=== PATIENT | female | born 1930 | race Caucasian/White ===

== ENCOUNTER 2017-05-12 10:41 | Outpatient (CLI) | payer MEDICARE, OTHER | END 2017-05-12 10:42 | disposition home or self-care (01) | LOC: BICMAMMO 10:41 | PROVIDERS: ATTEND Internal Medicine | DX: R92.8 Other abnormal and inconclusive findings on diagnostic imaging of breast (principal) | CPT/HCPCS: G0204; G0279; 77066 ==

== ENCOUNTER 2019-03-15 12:40 | Inpatient (IN) | payer MEDICARE, OTHER ==
[~2019-03-15 12:40] MED LIST: Iopamidol-370 76% 500 ML 1 ML ONE
[2019-03-15 13:15] LABS: #Neutrophils 6.4 thou/uL (1.40-6.50); %Basophils 0.5 % (0.0-1.0); %Eosinophils 0.4 % (0.0-10.0); %Lymphocytes 11.8 % (21.0-51.0); %Monocytes 11.6 % (0.0-10.0); %Neutrophils 75.7 % (42.0-75.0); Hemoglobin 7.3 g/dL (12.0-16.0); Mean Corpuscular HGB CONC 28.5 g/dL (32.0-36.0); Mean Corpuscular Hemoglobin 20.4 pg (27.0-31.0); Mean Corpuscular Volume 71.6 fL (78.0-98.0); Mean Platelet Volume 7.1 fL (7.4-10.4); Platelet Count 468 thou/uL (130-400); RBC Distribution Width 17.6 % (11.5-14.5); White Blood Cell (WBC) Count 8.4 thou/uL (4.8-10.8)
--- NOTE | 2019-03-15 13:18 | RAD ---
Exam: Chest one view HISTORY:Chest Comparison: None FINDINGS: Cardiac silhouette:Upper normal cardiac silhouette Aorta: Atherosclerosis of the aorta Pulmonary vessels: Normal Costophrenic angles: All bilateral effusions. LUNGS: Patchy interstitial and alveolar opacities. Pneumothorax: None Osseous abnormalities: Chronic changes in the left and right shoulder. IMPRESSION: 1. Possible congestive heart failure. 2. Atherosclerosis. 3. Continued surveillance.
[2019-03-15 13:20] LABS: PTT 29.9 SEC (22.9-36.1); Prothrombin Time 12.8 SEC (12.0-14.7)
[2019-03-15 13:22] LABS: D-Dimer Test 0.68 *mcg/mL (0.27-0.43); MDiff Complete? YES; Microcytosis SLIGHT = 6-15 cells (100X) (0-5/hpf); Platelet Morphology Comment Appears Increased; Polychromasia MODERATE = 3-4 cells (100X) (0-2/hpf)
[2019-03-15 13:27] LABS: Hypochromia MODERATE=16-30 cells (100X) (0-5/hpf); Target Cells SLIGHT = 2-5 cells (100X) (0-1/hpf)
[2019-03-15 13:35] LABS: ALT (SGPT) 19 U/L (8-55); AST (SGOT) 19 U/L (5-34); Albumin 3.8 g/dL (3.4-4.8); Alkaline Phosphatase 88 U/L (40-110); Anion Gap 11 mmol/L (10-20); BUN (Urea Nitrogen) 28 mg/dL (9.8-20.1); Bilirubin, Total 0.3 mg/dL (0.2-1.2); Calc. Creatinine Clearance 0 mL/min (70-130); Carbon Dioxide 25 mmol/L (23-31); Chloride 102 mmol/L (98-107); Estimated GFR-MDRD 64; Globulin 2.4 g/dL (2.4-3.5); Glucose 130 mg/dL (83-110); Potassium 4.8 mmol/L (3.5-5.1); Protein, Total 6.2 g/dL (6.0-8.3); Sodium 133 mmol/L (136-145)
[2019-03-15] MEDS ORDERED: traMADol HCl 50 MG TAB ONE (14:24)
[2019-03-15] MEDS ORDERED: Furosemide 40 MG/4 ML VIAL ONE (14:58)
[2019-03-15] MEDS ORDERED: Aspirin Chewable 81 MG TAB ONE (14:58)
[2019-03-15] MEDS ORDERED: Nitroglycerin 2% Ointment 1 INCH/1 GM Packet ONE (14:58)
[2019-03-15] MEDS ORDERED: Senokot S 8.6-50 MG TAB PO PRN (15:22)
[2019-03-15] MEDS ORDERED: Acetaminophen 325 MG TAB PO PRN (15:22)
[2019-03-15] MEDS ORDERED: Bisacodyl 10 MG SUPP PR PRN (15:22)
[2019-03-15] MEDS ORDERED: Ondansetron PF 4 MG/2 ML Vial IVP PRN (15:22)
[2019-03-15] MEDS ORDERED: Guaifenesin DM 100-10/5 ML UDCUP PO PRN (15:22)
--- NOTE | 2019-03-15 16:18 | HP ---
REASON FOR ADMISSION: CHF exacerbation. HISTORY OF PRESENTING ILLNESS: The patient gives history of being short of breath for the last 1 week. This was progressively getting worse. She has had dry coughing spells. No fever. The patient states she has known history of CHF. She also smokes 7 to 8 cigarettes a day now. No complaints of chest pain or palpitations at present. No PND or orthopnea. She normally ambulates by herself, but from last 1 week she has been using a walker now due to shortness of breath and is holding onto kramer due to severe shortness of breath. PAST MEDICAL AND SURGICAL HISTORY: History of coronary artery disease with prior stents. She has had stents in her iliac artery. Balloon angioplasty done for the legs by Dr. Anne in [place]. She has also seen Dr. Oliva in [place], both are cardiologists. She was suggested CABG, but will be a complicated procedure and the patient has refused the same for now. Osteoarthritis, she received steroid shots for shoulders and knees. Has labile hypertension, sensorineural deafness with hearing aid, tonsillectomy in high school, left breast cancer and lumpectomy in 1991, right breast cancer and lumpectomy done in 1993. She has finished chemo and radiation therapy in 1993. She has had a spot in her lungs and has had excision biopsy done by Dr. Curry, which was negative for cancer. Hysterectomy, dyslipidemia, hypothyroidism. CURRENT MEDICATIONS: The patient is on; 1. Synthroid 125 mcg p.o. daily. 2. Aspirin 81 mg p.o. daily. 3. Ultram twice daily p.r.n. 4. Crestor 10 mg p.o. daily. 5. Isosorbide dinitrate 10 mg twice daily. 6. Carvedilol 3.125 mg twice daily. 7. Plavix 75 mg p.o. daily. 8. Vitamin B12 with folic acid one tablet daily. ALLERGIES: ERYTHROMYCIN, HALCION, KEFLEX, LISINOPRIL, PENICILLIN, AND TETRACYCLINE. SHE IS ALSO ALLERGIC TO CLEOCIN. PERSONAL HISTORY: Smokes 7 to 8 cigarettes a day. Does not abuse alcohol or drugs. She usually ambulates by herself, but from last 1 week, she is using a walker. FAMILY HISTORY: Both parents at the age of 89. Mother has had history of carotid stenosis. Father has had history of laryngeal cancer. CODE STATUS: Do not attempt to resuscitate. Power of workers compensation defense attorney is her [id number], Ms. Maria Victoria Paula. REVIEW OF SYSTEMS: CONSTITUTIONAL: Negative for weight loss or gain, ability to conduct usual activities. SKIN: Negative for rash, itching. EYES: Negative for double vision, pain. ENT/MOUTH: Negative for nose bleeding, neck stiffness, pain, tenderness. CARDIOVASCULAR: Negative for palpitations, dyspnea on exertion, orthopnea. RESPIRATORY: Negative for shortness of breath, wheezing, cough, hemoptysis, fever or night sweats. GASTROINTESTINAL: Negative for poor appetite, abdominal pain, heartburn, nausea , vomiting, constipation, or diarrhea. GENITOURINARY: Negative for urgency, frequency, dysuria, nocturia. MUSCULOSKELETAL: Negative for pain, swelling. NEUROLOGIC/PSYCHIATRIC: Negative for anxiety, depression. ALLERGY/IMMUNOLOGIC: Negative for skin rash, bleeding tendency. PHYSICAL EXAMINATION: GENERAL: The patient is an 88-year-old female who is currently in mild to moderate respiratory distress. VITAL SIGNS: Blood pressure 164/74, pulse 86 per minute, respiratory rate 22 per minute, temperature 98 degrees Fahrenheit, saturating 98% on room air. NECK: Supple. No elevated JVD. HEENT: Eyes; extraocular muscles intact. Pupils are reacting to light. Oral cavity, mucous membranes are dry. No exudates or congestion. CARDIOVASCULAR SYSTEM: S1 and S2 heard. Regular rhythm. RESPIRATORY SYSTEM: Air entry 1+ bilateral. Scattered wheezes plus bilateral. Scattered rales plus in the infrascapular and infra-axillary area. ABDOMEN: Soft. Bowel sounds heard. No tenderness, rigidity, or guarding. EXTREMITIES: There is mild peripheral edema. There is ecchymosis in both lower extremities. No calf tenderness. VASCULAR SYSTEM: Peripheral pulses 1+ bilateral. No ischemic ulcerations or gangrene. CENTRAL NERVOUS SYSTEM: No gross focal deficits noted. The patient is alert, awake, and oriented well. PSYCHIATRIC SYSTEM: The patient's mood is euthymic. No hallucinations or delusions. LABORATORY DATA: Chest x-ray done shows pulmonary vascular congestion. EKG done shows normal sinus rhythm at 85 beats per minute. There is Q-wave seen in V1 and V2. White count of 8, H and H of 7 and 25, platelet count is 468 with 75% neutrophils, MCV 71. PT, INR, PTT within normal limits. D-dimer 0.68. Sodium 133, bicarb 25, BUN 28, creatinine 0.8, glucose 130. BNP 1067. Troponin I less than 0.01. Liver enzymes are within normal limits. Albumin is 3.8. CLINICAL IMPRESSION AND PLAN: The patient will be admitted to telemetry for acute congestive heart failure exacerbation. She will be on Lasix 40 mg IV at 6 a.m. and 2 p.m. She has received a dose of Lasix 40 mg IV in the ER. We will continue her on aspirin, Coreg for now. We will obtain stool occult blood x2. Echo with 2D Doppler for LV function. PT/OT evaluations. Cardiology consultation with Dr. Rao who is on-call for Dr. Bangura. We will also place her on DuoNeb, and we will get iron studies. We will also obtain TSH levels for the morning. If her hemoglobin drops less than 7 g, she will be given transfusion. We will continue to closely monitor her on telemetry for now. Job ID: [id number] MTDD
--- NOTE | 2019-03-15 16:24 | CT ---
CTA CHEST WITH CONTRAST AND 3D VOLUME RENDERING: Date: 03/15/19 INDICATION: Dyspnea. No prior CT imaging available. FINDINGS: No evidence of significant filling defect of pulmonary arteries. The thoracic aorta is limited in ass essment on the basis of technique of the exam. There is diffuse atherosclerotic vascular disease. Pul monary emphysema is present. Adjacent to multiple areas of interstitial septal thickening, there is bilateral ground-glass alveolar opacification which favors alveolar edema. There is diffuse bilateral subpleural opacification both interstitial and ground-glass which may be on the basis of interstitia l fibrosis. Mild to moderate bilateral pleural effusions are present. There is mild prominence of the thoracic lymph nodes, nonspecific. Punctate hypodensity of the right hepatic lobe is incompletely ch aracterized. There are scattered granulomatous calcifications. Bilateral renal calcifications are pre sent without hydronephrosis of the imaged aspects. IMPRESSION: 1. No evidence of acute pulmonary embolus. 2. Findings indicate interstitial lung disease, with superimposed mild to moderate bilateral pleural fluid. Superimposed alveolar ground-glass opacities favor edema in light of the concomitant findings . POS: C
[2019-03-15 16:28] LABS: Iron 11 ug/dL (50-170); Iron Binding Capacity, Total 430 mcg/dL (265-497)
[2019-03-15 16:56] LABS: Ferritin 6.54 ng/mL (10-291)
[2019-03-15 16:58] LABS: Vitamin B12 Greater than 2000 pg/mL (211-911)
[2019-03-15 20:42] LABS: Troponin I 0.022 ng/mL (< 0.028)
[2019-03-15] MEDS: Famotidine 20 MG TAB PO SCH (22:11)
[2019-03-15] MEDS: Carvedilol 3.125 MG TAB PO SCH (22:11)
[2019-03-15] MEDS: Rosuvastatin 10 MG TAB PO SCH (22:11)
[2019-03-15] MEDS: Isosorbide Dinitrate 20 MG TAB PO SCH (22:11)
[2019-03-15] MEDS: traMADol HCl 50 MG TAB PO PRN (22:42)
[2019-03-16 04:30] LABS: Band 1 % (5-11); Eosinophils 1 % (0-10); Hemoglobin 6.8 g/dL (12.0-16.0); Lymphocytes 17 % (21-51); MDiff Complete? YES; Mean Corpuscular HGB CONC 30.3 g/dL (32.0-36.0); Mean Corpuscular Hemoglobin 21.2 pg (27.0-31.0); Mean Platelet Volume 7.7 fL (7.4-10.4); Metamyelocyte 1 % (0-0); Monocytes 4 % (0-10); Neutrophil 75 % (42-75); Platelet Count 450 thou/uL (130-400); Platelet Morphology Comment Appears Increased; RBC Distribution Width 17.6 % (11.5-14.5); White Blood Cell (WBC) Count 8.2 thou/uL (4.8-10.8)
[2019-03-16 04:39] LABS: BUN (Urea Nitrogen) 26 mg/dL (9.8-20.1); Calc. Creatinine Clearance 40 mL/min (70-130); Calcium 8.9 mg/dL (7.8-10.44); Carbon Dioxide 24 mmol/L (23-31); Estimated GFR-MDRD 63; Glucose 77 mg/dL (83-110)
[2019-03-16 04:47] LABS: Anion Gap 10 mmol/L (10-20); Chloride 101 mmol/L (98-107); Potassium 3.6 mmol/L (3.5-5.1); Sodium 135 mmol/L (136-145)
[2019-03-16] MEDS: Furosemide 40 MG/4 ML VIAL SLOW IVP SCH ×2 (06:29→14:55)
[2019-03-16] MEDS: Levothyroxine Sodium 125 MCG TAB PO SCH (06:29)
[2019-03-16] MEDS: Isosorbide Dinitrate 20 MG TAB PO SCH ×2 (09:36→20:11)
[2019-03-16] MEDS: Carvedilol 3.125 MG TAB PO SCH ×2 (09:36→20:11)
[2019-03-16] MEDS: Famotidine 20 MG TAB PO SCH (09:36)
[2019-03-16] MEDS: Aspirin Chewable 81 MG TAB PO SCH (09:37)
[2019-03-16] MEDS: Enoxaparin Sodium 40 MG/0.4 ML SYRINGE SC SCH (09:37)
[2019-03-16] MEDS: Clopidogrel Bisulfate 75 MG TAB PO SCH (09:37)
--- NOTE | 2019-03-16 11:58 | PDOC.HOSPP ---
- Subjective Encounter Date: 03/16/19 Encounter Time: 09:30 Subjective: sob is better, no chest pain or palp - Objective Vital Signs & Weight: Vital Signs (12 hours) Temp Pulse Pulse Resp BP BP Pulse Ox 03/16/19 11:14 97.8 F 72 18 86/40 L 03/16/19 07:57 98 03/16/19 07:56 99.0 F 74 17 146/64 H 98 03/16/19 07:41 70 18 98 03/16/19 04:00 97.7 F 80 18 119/56 L 97 03/16/19 00:00 98.5 F 81 18 105/54 L 95 Weight Weight 118 lb 8 oz I&O: 03/15/19 03/16/19 03/17/19 06:59 06:59 06:59 Intake Total 240 0 Output Total 450 Balance -210 0 Result Diagrams: 03/16/19 03:38 03/16/19 03:38 Hospitalist ROS - Medication Medications: Active Medications Generic Name Dose Route Start Last Admin Trade Name Snow PRN Reason Stop Dose Admin Albuterol/Ipratropium 3 ml 03/15/19 19:00 03/16/19 07:41 Duoneb NEB 3 ml [id number] LORIN Administration Aspirin 81 mg 03/16/19 09:00 03/16/19 09:37 Aspirin Chewable PO 81 mg DAILY LORIN Administration Carvedilol 3.125 mg 03/15/19 21:00 03/16/19 09:36 Coreg PO 3.125 mg BID LORIN Administration Clopidogrel Bisulfate 75 mg 03/16/19 09:00 03/16/19 09:37 Plavix PO 75 mg DAILY LORIN Administration Enoxaparin Sodium 40 mg 03/16/19 09:00 03/16/19 09:37 Lovenox SC 40 mg 0900 LORIN Administration Famotidine 20 mg 03/15/19 21:00 03/16/19 09:36 Pepcid PO 20 mg BID LORIN Administration Furosemide 40 mg 03/16/19 06:00 03/16/19 06:29 Lasix SLOW IVP 40 mg 0600,1400 LORIN Administration Isosorbide Dinitrate 10 mg 03/15/19 21:00 03/16/19 09:36 Isordil PO 10 mg BID LORIN Administration Levothyroxine Sodium 125 mcg 03/16/19 06:00 03/16/19 06:29 Synthroid PO 125 mcg 0600 LORIN Administration Rosuvastatin Calcium 10 mg 03/15/19 21:00 03/15/19 22:11 Crestor PO 10 mg HS LORIN Administration Tramadol HCl 50 mg 03/15/19 22:30 03/15/19 22:42 Ultram PO 50 mg Q12H PRN Administration Moderate Pain (4-6) - Exam General Appearance: NAD, awake alert Eye: PERRL, anicteric sclera ENT: no oropharyngeal lesions, moist mucosa Neck: supple, no JVD Heart: irregular, murmur present Respiratory: no wheezes, no rales, rhonchi Gastrointestinal: soft, non-tender, non-distended, normal bowel sounds Extremities: no cyanosis, no edema Neurological: cranial nerve grossly intact, no focal deficits Psychiatric: normal affect, A&O x 3 Hosp A/P (1) Acute exacerbation of CHF (congestive heart failure) Code(s): I50.9 - HEART FAILURE, UNSPECIFIED Status: Acute Qualifiers: Heart failure type: unspecified Qualified Code(s): I50.9 - Heart failure, unspecified (2) CAD (coronary artery disease) Code(s): I25.10 - ATHSCL HEART DISEASE OF [place] CORONARY ARTERY W/O ANG PCTRS Status: Chronic Qualifiers: Coronary Disease-Associated Artery/Lesion type: [place] artery [place] vs. transplanted heart: [place] heart Associated angina: without angina Qualified Code(s): I25.10 - Atherosclerotic heart disease of [place] coronary artery without angina pectoris (3) COPD (chronic obstructive pulmonary disease) Status: Suspected Qualifiers: COPD type: chronic bronchitis (4) PVD (peripheral vascular disease) Code(s): I73.9 - PERIPHERAL VASCULAR DISEASE, UNSPECIFIED Status: Chronic (5) Dyslipidemia Code(s): E78.5 - HYPERLIPIDEMIA, UNSPECIFIED Status: Chronic (6) Osteoarthritis Code(s): M19.90 - UNSPECIFIED OSTEOARTHRITIS, UNSPECIFIED SITE Status: Chronic Qualifiers: Osteoarthritis location: multiple joints (7) Hypothyroidism Code(s): E03.9 - HYPOTHYROIDISM, UNSPECIFIED Status: Chronic Qualifiers: Hypothyroidism type: unspecified Qualified Code(s): E03.9 - Hypothyroidism , unspecified (8) H/O malignant neoplasm of breast Code(s): Z85.3 - PERSONAL HISTORY OF MALIGNANT NEOPLASM OF BREAST Status: Chronic - Plan gentle diuresis, echo pending continue nebs, asp, plavix, crestor, synthroid, isordil mobilize as toleratd 1 u prbc transfusion will likely need EGD with Hb of 6g and needing asp, plavix for recent stent to left iliac breast ca is in remission from 1993. Needs cabg but the procedure is too risky for her per patient (according to her cardio in [place]) has underlying valvular heart disease, await echo results continue nebs will need another 36hrs stay in hospital for diuresis and optimizing her meds and breathing.
--- NOTE | 2019-03-16 16:38 | CON ---
DATE OF CONSULTATION: PRIMARY CARE DOCTOR: Js Ba MD PRIMARY CLINICAL MATERIAL HANDLER: Marielos Bangura MD. PRIMARY GI DOCTOR: Dr. Smith. REASON FOR CARDIOLOGY CONSULT: Congestive heart failure extubation. HISTORY OF PRESENT ILLNESS: Ms. Mims is a very, very pleasant 88-year-old female with significant history of coronary artery disease and peripheral artery disease with 90% stenosis of three-vessel disease. The patient underwent AFRO with angioplasty to bilateral JIN in [place] in June 2018, hypertension, history of breast cancer, hypothyroidism, and current smoker. The patient has osteoporosis. The patient came to Dr. Bangura's office on March 10, 2019, for complaint of shortness of breath and chest tightness. At that time, the patient complained more chest tightness and shortness of breath. The echocardiogram was once ordered and amlodipine was stopped and started on carvedilol 3.125 mg twice a day for history of coronary artery disease, PAD, and blood pressure management and also isosorbide 10 mg twice a day was prescribed for chest tightness. The patient was consulted by coagulating bath operator, CT surgeon in [place] for possible CABG. However, the patient was told to continue medical management only due to her severely calcified CAD and her age and also she refused to have a CABG at this moment. She also found to have a hemoglobin level of 7.3 and 6.8 this morning. She has been taking Plavix and aspirin for status post AFRO with angioplasty in bilateral lower extremity in June 2018. She was told that she has to continue taking those medicine lifelong. She presented to the emergency department for worsening of shortness of breath and mild chest tightness. The patient denied edema in the lower extremities, dizziness, lightheadedness, or any other cardiac complaints. She also complained of decreased appetite lately. She was not eating well, but she was drinking Ensure. She had a colonoscopy and EGD done in few years ago for the polyps removed. She reports that she have a dark stool, however, it is dark brown stool according to the patient, but not like a tar like stool. She never seen her stool like that. At this moment, the patient denied chest pain, heaviness, tightness, shortness of breath, dizziness, lightheadedness, or any cardiac complaints. She is breathing well with 2 L nasal cannula at this moment. PAST MEDICAL HISTORY: 1. Coronary artery disease. 2. Peripheral artery disease. 3. Hypertension. 4. Hypothyroidism. 5. Current smoker. 6. Osteoarthritis. PAST SURGICAL HISTORY: Status post AFRO and angioplasty to bilateral JIN in June 2018 and status post cardiac cath with 90% stenosis of three-vessel CAD, medical management only, hysterectomy in 1984, lumpectomy in 1991, lung surgery in 1991, right lumpectomy in 1993, thyroidectomy in 1985 and tonsillectomy. FAMILY HISTORY: The patient's mother has history of carotid stenosis. The patient's father has history of laryngeal cancer. SOCIAL HISTORY: She is a . She is living by herself, but she had a good family support. She continues to smoke 7 to 8 cigarettes per day. She denied alcohol, EtOH, or illicit drug abuse. She use a cane or a walker at home. ALLERGIES: SHE IS ALLERGIC TO ERYTHROMYCIN, HALCION, KEFLEX, LISINOPRIL, PENICILLIN, AND TETRACYCLINE. SHE IS ALLERGIC TO CLEOCIN. HOME MEDICATIONS: 1. Synthroid 125 mcg once a day. 2. Aspirin 81 mg once a day. 3. Plavix 75 mg once a day. 4. Vitamin B12 of 500 mcg/400 mcg once a day. 5. Vitamin B3 of 2000 unit once a day. 6. Tramadol 50 mg every 6 hours as needed. 7. Rosuvastatin 10 mg once a day. 8. Coreg 6.25 mg twice a day. 9. Triamterene/hydrochlorothiazide 37.5/25 mg once a day. 10. Isosorbide 10 mg twice a day. REVIEW OF SYSTEMS: Twelve-point review of systems negative unless otherwise mentioned in HPI. She is complaining of constipation. PHYSICAL EXAMINATION: GENERAL: The patient is alert and oriented x4, not in acute distress. HEAD: Normocephalic, atraumatic. EYES: Extraocular muscle movement intact. She wears glasses for the reading. ENT AND MOUTH: Oral mucosa moist without lesion. NECK: Supple. Normal range of motion. No JVD. RESPIRATORY: Clear to auscultate bilaterally, but very diminished at the bases. No wheezing, rales, or rhonchi noted. CARDIOVASCULAR: Regular rate and rhythm. Normal S1 and S2. There is no S3 or S4. They have significant murmurs present in bilateral upper medial sternal borders and . ABDOMEN: Soft, nontender. No mass to palpitate. Bowel sounds are present, but hypoactive. SKIN: Warm and dry. No lesion, rash, or erythema noted. She has mild bruising in bilateral upper extremities. EXTREMITIES: 2+ pulses in bilateral upper extremities. Diminished pulses in bilateral lower extremities, but the patient denied claudication at this moment. No edema in bilateral lower extremities. MUSCULOSKELETAL: The patient able to move and turn herself. The patient denied claudication in the lower extremities. NEUROLOGIC: The patient is alert and oriented x4. Nonfocal. PSYCHIATRIC: The patient's mood is very appropriate. LABORATORY DATA: WBC 8.2, hemoglobin 6.8, hematocrit 22.4, and platelet 450. D-dimer 0.68. Sodium 135, potassium 3.6, BUN 26, creatinine 0.85, and calcium 8.9. Ferritin is 6.54. Troponin is negative x3. Vitamin B12 more than 2000. Folate 17.5. TSH 3.7072. Iron 11.0, TIBC 430. BNP is 1067. CT scan chest for elevated D-dimer, showed no evidence of acute pulmonary embolus, indicated [id number] bilateral pleural fluid effusion. The patient's chest x-ray show possible congestive heart failure, atherosclerosis. ASSESSMENT AND PLAN: 1. Elevated BNP secondary to possible acute on chronic congestive heart failure. The patient is going to have echocardiogram done hopefully today. Her respiratory status is stable with Lasix 40 mg IV push. Although, the patient is still on 2 L nasal cannula. The patient's creatinine level and potassium level are stable at this moment. She is on carvedilol 3.125 mg twice a day. She is not on SILVANO inhibitor or ARB at this moment due allergic to lisinopril. We would like to continue to monitor and we would like to adjust the patient's medical treatment plan as needed. 2. Coronary artery disease. At this moment, the patient is asymptomatic. The patient denies shortness of breath or chest tightness at this moment. She is on isosorbide dinitrate 10 mg twice a day, carvedilol 3.125 mg twice a day, aspirin, and Plavix. We would like to continue to monitor on the telemetry. 3. Severe anemia. The patient's hemoglobin level this morning was 6.8. According to patient's primary care doctor, the patient is going to have a blood transfusion today. At this moment, the patient is on aspirin and Plavix due to history of peripheral artery disease in bilateral lower extremities with procedure in June 2018. GI consult was already ordered at this moment. 4. Cardiac murmur. The patient is going to have echocardiogram done today. 5. Hypertension. The patient's blood pressure is stable at this moment with current medication. We would like to continue to monitor. 6. Hypothyroidism. She is on levothyroxine. 7. Current smoker. Strongly recommend the patient to start smoking cessation. Thank you very much for Cardiology Service to participate in the care of this patient. We will follow along the patient's care team and make further recommendations as appropriate. Job ID: [id number]
[2019-03-16] MEDS: traMADol HCl 50 MG TAB PO PRN (20:09)
[2019-03-16] MEDS: Rosuvastatin 10 MG TAB PO SCH (20:09)
--- NOTE | 2019-03-17 00:03 | PDOC.CPN ---
- Subjective Date: 03/16/19 Time: 17:30 - Objective Allergies/Adverse Reactions: Allergies Allergy/AdvReac Type Severity Reaction Status Date / Time cephalexin [From Keflex] Allergy Verified 03/15/19 15:28 erythromycin base Allergy Verified 03/15/19 15:28 lisinopril Allergy Verified 03/15/19 15:28 Penicillins Allergy Verified 03/15/19 15:28 tetracycline Allergy Verified 03/15/19 15:28 triazolam [From Halcion] Allergy Verified 03/15/19 15:28 Visit Medications: Current Medications Acetaminophen (Tylenol) 650 mg PO Q4H PRN PRN Reason: Headache/Fever/Mild Pain (1-3) Albuterol/Ipratropium (Duoneb) 3 ml NEB [id number] [facility] Last Admin: 03/16/19 19:28 Dose: 3 ml Aspirin (Aspirin Chewable) 81 mg PO DAILY [facility] Last Admin: 03/16/19 09:37 Dose: 81 mg Bisacodyl (Dulcolax) 10 mg [place] DAILYPRN PRN PRN Reason: Constipation Carvedilol (Coreg) 3.125 mg PO BID [facility] Last Admin: 03/16/19 20:11 Dose: 3.125 mg Clopidogrel Bisulfate (Plavix) 75 mg PO DAILY [facility] Last Admin: 03/16/19 09:37 Dose: 75 mg Enoxaparin Sodium (Lovenox) 40 mg SC 0900 [facility] Last Admin: 03/16/19 09:37 Dose: 40 mg Furosemide (Lasix) 40 mg SLOW IVP 0600,1400 [facility] Last Admin: 03/16/19 14:55 Dose: 40 mg Guaifenesin/Dextromethorphan (Robitussin Dm) 15 ml PO Q4H PRN PRN Reason: Cough Isosorbide Dinitrate (Isordil) 10 mg PO BID [facility] Last Admin: 03/16/19 20:11 Dose: 10 mg Levothyroxine Sodium (Synthroid) 125 mcg PO 0600 [facility] Last Admin: 03/16/19 06:29 Dose: 125 mcg Ondansetron HCl (Zofran) 4 mg IVP Q6H PRN PRN Reason: Nausea/Vomiting Pantoprazole Sodium (Protonix) 40 mg IVP DAILY [facility] Rosuvastatin Calcium (Crestor) 10 mg PO HS [facility] Last Admin: 03/16/19 20:09 Dose: 10 mg Senna/Docusate Sodium (Senokot S) 2 tab PO BID PRN PRN Reason: Constipation Sodium Chloride (Flush - Normal Saline) 10 ml IVF PRN PRN PRN Reason: Saline Flush Tramadol HCl (Ultram) 50 mg PO Q12H PRN PRN Reason: Moderate Pain (4-6) Last Admin: 03/16/19 20:09 Dose: 50 mg Vital Signs & Weight: Vital Signs Temp Pulse Pulse Resp BP BP Pulse Ox 03/16/19 19:32 97.8 F 83 20 100 03/16/19 19:30 100 03/16/19 19:28 16 03/16/19 15:00 98.1 F 76 76 16 111/54 L 111/54 L 98 03/16/19 13:08 86 14 99 03/16/19 12:00 98.1 F 73 18 101/57 L 97 Admit Weight 118 lb Weight 118 lb 8 oz - Labs Result Diagrams: 03/16/19 03:38 03/16/19 03:38 Troponin/CKMB Troponin I 0.022 ng/mL (< 0.028) 03/15/19 20:07 - Assessment/Plan Assessment/Plan: Pt. seen and evaluated by me. I agree with the A/P by the INDUSTRIAL RECRUITER. She is rather weak likely due to the anemia. She has severe 3 vessel CAD that has been evaluated for rotoblader but it was felt best to treat medically due to the overall extent of disease. She is very anemiec and most of her symptoms may be related to this. Her stools are + for heme. I will continue to follow with you. She will probably benefit from further transfusions due to the severe 3 vessel CAN An increased Hgb may decrease the ischemia and increased possibility of GA. Chest clear. RRR, multiple echymosis of lower extremities. Pedal pulses not palpable. She will likely need a GI consult but uncertain if they will do a colonoscopy due to her CAD. I will continue to follow the pt. with you. [email or web address]
[2019-03-17 05:16] LABS: Anion Gap 13 mmol/L (10-20); BUN (Urea Nitrogen) 22 mg/dL (9.8-20.1); Calc. Creatinine Clearance 37 mL/min (70-130); Calcium 9.2 mg/dL (7.8-10.44); Carbon Dioxide 28 mmol/L (23-31); Chloride 99 mmol/L (98-107); Estimated GFR-MDRD 61; Glucose 86 mg/dL (83-110); Potassium 3.2 mmol/L (3.5-5.1); Sodium 137 mmol/L (136-145)
[2019-03-17 05:28] LABS: Band 1 % (5-11); Eosinophils 1 % (0-10); Hemoglobin 8.3 g/dL (12.0-16.0); Hypochromia SLIGHT = 6-15 cells (100X) (0-5/hpf); Lymphocytes 25 % (21-51); MDiff Complete? YES; Mean Corpuscular HGB CONC 31.1 g/dL (32.0-36.0); Mean Corpuscular Hemoglobin 22.4 pg (27.0-31.0); Mean Corpuscular Volume 72.1 fL (78.0-98.0); Metamyelocyte 1 % (0-0); Microcytosis SLIGHT = 6-15 cells (100X) (0-5/hpf); Monocytes 2 % (0-10); Neutrophil 70 % (42-75); Platelet Count 457 thou/uL (130-400); Platelet Morphology Comment Appears Adequate; RBC Distribution Width 18.5 % (11.5-14.5); Red Blood Cell (RBC) Count 3.71 mill/uL (4.20-5.40); White Blood Cell (WBC) Count 7.6 thou/uL (4.8-10.8)
[2019-03-17] MEDS: Furosemide 40 MG/4 ML VIAL SLOW IVP SCH ×2 (05:36→15:24)
[2019-03-17] MEDS: Levothyroxine Sodium 125 MCG TAB PO SCH (05:36)
[2019-03-17] MEDS ORDERED: Potassium Chloride 20 MEQ TAB PO SCH (09:00)
--- NOTE | 2019-03-17 09:36 | CON ---
DATE OF CONSULTATION: 03/16/2019 REASON FOR CONSULTATION: Microcytic anemia with iron deficiency. HISTORY OF PRESENT ILLNESS: Ms. Mims is an 88-year-old female, who sees Dr. Ba for primary care and has been seeing lobby porter in [place]. Recently earlier this year, she had stents placed in her legs and was started on Plavix that was in June. She reports she has not had any issues with anemia in the past that she knows of. She began to have shortness of breath and was sent to see Dr. Bangura on the for shortness of breath and chest tightness. She has had some medication changes. She has been found however to have a hemoglobin of 7.3 and it was 6.8 this morning. The patient states that she was told she had 3-vessel coronary artery disease in [place], but was not a candidate for bypass secondary to her age. She is not aware of any coronary stents. As far as her anemia, she is not seeing overt bleeding. She has no hematemesis, no hematochezia, but her stools have been on and off dark, which is not normal for her. Stools have been very hard. Her stool was sent off today, it was heme-positive. The nurse left the specimen in the bathroom, it is very black, but it is not overly melenic. She denies taking iron pills. She denies taking any NSAIDs other than a baby aspirin. She was on Plavix at home and was told she just ended her life with her stents in her legs. She has been seen by Cardiology. Echocardiogram has been ordered and that is pending at this time. Presently, she feels a little better. She got 1 unit of blood today. She does note she has lost about 40 pounds since the stents were placed in her legs in June and that she has really a limited appetite. She has had no vomiting. Presently, the patient has no shortness of breath, chest pain, or dyspnea. PAST MEDICAL HISTORY: Coronary artery disease, peripheral vascular disease, hypertension, hypothyroidism, osteoarthritis. PAST SURGICAL HISTORY: The patient had apparently angioplasty in the lower extremities in June of 2018. Previous cath with reported stenosis 90% of three vessels. She has had a hysterectomy in 1984, lumpectomy in 1991 for breast cancer. Lung surgery in 1991, which was benign. Thyroid surgery in 1993. She had a colonoscopy in 2010 and 2016 with just hyperplastic polyps removed. FAMILY HISTORY: Laryngeal cancer in patient's father. History of carotid stenosis. SOCIAL HISTORY: The patient is . Lives by herself. She has a granddaughter here with her. She smokes 6-7 cigarettes per day. Does not drink or use drugs. She used a cane at home. ALLERGIES: ERYTHROMYCIN, HALCION, KEFLEX, LISINOPRIL, PENICILLIN, TETRACYCLINE, CLEOCIN. HOME MEDICATIONS: 1. Synthroid. 2. Aspirin 81. 3. Plavix 75. 4. Vitamin B12. 5. Vitamin B3. 6. Tramadol. 7. Rosuvastatin. 8. Coreg. 9. Triamterene/hydrochlorothiazide. 10. Isosorbide. REVIEW OF SYSTEMS: Positive for dyspnea on exertion. Positive for orthopnea. Negative for dysuria, frequency, or urgency. Positive for chronic back, hip and shoulder pain for which she has injections. Otherwise, review of systems per HPI. HOSPITAL MEDICATIONS: 1. Tylenol. 2. DuoNeb. 3. Aspirin. 4. Bisacodyl. 5. Carvedilol. 6. Plavix. 7. Lovenox. 8. Pepcid. 9. Furosemide. 10. Isosorbide. 11. Levothyroxine. 12. Zofran. 13. Rosuvastatin. 14. Senokot. 15. Tramadol. PHYSICAL EXAMINATION: VITAL SIGNS: Temperature is 98, pulse 76, respirations 16, and O2 of 98% on 2 L, blood pressure 111/54. LUNGS: Crackles in the bases. HEART: Has 2/6 systolic ejection murmur. ABDOMEN: Soft and nontender. There is no rebound or guarding. RECTAL: Exam was not performed. I was able to look at the stool the patient had the bathroom. EXTREMITIES: No clubbing, cyanosis, or edema. She has muscle wasting. NEUROLOGICAL: She is alert and oriented to person, place, and time, nurse is at bedside. ASSESSMENT: Severe anemia with microcytosis, low iron stores with a ferritin of 6.5. She had a colonoscopy last in 2015. She has upper GI symptoms of anorexia, early satiety, and weight loss. She could have an ulcer. She could have a malignancy. There may be that she does have severe anemia as she is on aspirin and Plavix, and she is 88 years old. It would be reasonable to consider upper endoscopy. Her hemoglobin remained a bit higher. Cardiology has an echocardiogram pending and await for their evaluation to be completed before embark on any invasive studies requiring sedation. I am not sure it is necessary for being on Plavix, aspirin, and Lovenox. She has a pretty high risk of bleed and 88. It may be reasonable to reconsider that combination. We will defer to the hospitalist on that. We will stop the Pepcid and start her on oral PPI. We will follow along with you. Job ID: [id number]
--- NOTE | 2019-03-17 10:24 | PQF ---
BEL VALENCIA, BAYLEE BOCANEGRA MD [id number] CLINICAL DOCUMENTATION IMPROVEMENT CLARIFICATION FORM: ICD-10 Updated PLEASE DO AN ADDENDUM TO THE PROGRESS NOTE WITH ANY DOCUMENTATION UPDATES OR ADDITIONS AND CARRY THROUGH TO DC SUMMARY. THANK YOU. DATE: 03/17/19 ATTN: DR. VALENCIA Please exercise your independent, professional judgment in responding to the clarification form. Clinical indicators are provided on the bottom of this form for your review Please check appropriate box(s): HEART FAILURE: A. ACUITY [ x ] Acute [ ] Acute on Chronic [ ] Chronic B. TYPE [ ] Systolic / HFrEF [ x ] Diastolic / HFpEF [ ] Combined Systolic / Diastolic [ ] Other diagnosis [ ] Unable to determine In addition, please specify: Present on Admission (POA): [ x ] Yes [ ] No [ ] Unable to determine For continuity of documentation, please document condition throughout progress notes and discharge summary. Thank You. CLINICAL INDICATORS - SIGNS / SYMPTOMS / LABS / RESULTS AND LOCATION IN EMR Ejection Fraction = 60 %- PER ECHO REPORT 03/16 Shortness of breath - 03/15 H&P Peripheral edema - MILD EDEMA - 03/15 H&P Elevated BNP- 03/15 PER LAB [id number] Vascular Congestion- 03/15 CXR RISKS FACTORS / RESULTS AND LOCATION IN EMR History of CAD - 03/15 H&P Hypothyroid - 03/15 H&P TREATMENTS / RESULTS AND LOCATION IN EMR Carvedilol 12.5 PO BID - 03/15 PER ORDERS ECHO- 03/15 PER ORDERS IV LASIX 40 MG 0600, 1400 2-3L Oxygen- 03/15-03/17 PER VITALS MTDD
[2019-03-17] MEDS: Iron, Sodium Ferric Gluconate 250 MG in Sodium Chloride 0.9% 100 ML IVPB SCH ×2 (11:25→20:12)
--- NOTE | 2019-03-17 12:32 | PDOC.CPN ---
- Subjective Date: 03/17/19 Time: 08:30 Interval history: The pt seen and examined. No overnight events. No cardiac complaints. - Objective Allergies/Adverse Reactions: Allergies Allergy/AdvReac Type Severity Reaction Status Date / Time cephalexin [From Keflex] Allergy Verified 03/15/19 15:28 erythromycin base Allergy Verified 03/15/19 15:28 lisinopril Allergy Verified 03/15/19 15:28 Penicillins Allergy Verified 03/15/19 15:28 tetracycline Allergy Verified 03/15/19 15:28 triazolam [From Halcion] Allergy Verified 03/15/19 15:28 Visit Medications: Current Medications Acetaminophen (Tylenol) 650 mg PO Q4H PRN PRN Reason: Headache/Fever/Mild Pain (1-3) Albuterol/Ipratropium (Duoneb) 3 ml NEB [id number] [facility] Last Admin: 03/17/19 07:24 Dose: 3 ml Aspirin (Aspirin Chewable) 81 mg PO DAILY [facility] Last Admin: 03/16/19 09:37 Dose: 81 mg Bisacodyl (Dulcolax) 10 mg VT DAILYPRN PRN PRN Reason: Constipation Carvedilol (Coreg) 3.125 mg PO BID [facility] Last Admin: 03/16/19 20:11 Dose: 3.125 mg Clopidogrel Bisulfate (Plavix) 75 mg PO DAILY [facility] Last Admin: 03/16/19 09:37 Dose: 75 mg Enoxaparin Sodium (Lovenox) 40 mg SC 0900 [facility] Last Admin: 03/16/19 09:37 Dose: 40 mg Furosemide (Lasix) 40 mg SLOW IVP 0600,1400 [facility] Last Admin: 03/17/19 05:36 Dose: 40 mg Guaifenesin/Dextromethorphan (Robitussin Dm) 15 ml PO Q4H PRN PRN Reason: Cough Ferric Sodium Gluconate Complex 250 mg/ Sodium Chloride 120 mls @ 60 mls/hr IVPB Q12HR [facility] Stop: 03/17/19 21:01 Isosorbide Dinitrate (Isordil) 10 mg PO BID [facility] Last Admin: 03/16/19 20:11 Dose: 10 mg Levothyroxine Sodium (Synthroid) 125 mcg PO 0600 [facility] Last Admin: 03/17/19 05:36 Dose: 125 mcg Ondansetron HCl (Zofran) 4 mg IVP Q6H PRN PRN Reason: Nausea/Vomiting Pantoprazole Sodium (Protonix) 40 mg IVP DAILY LORIN Rosuvastatin Calcium (Crestor) 10 mg PO HS LORIN Last Admin: 03/16/19 20:09 Dose: 10 mg Senna/Docusate Sodium (Senokot S) 2 tab PO BID PRN PRN Reason: Constipation Sodium Chloride (Flush - Normal Saline) 10 ml IVF PRN PRN PRN Reason: Saline Flush Tramadol HCl (Ultram) 50 mg PO Q12H PRN PRN Reason: Moderate Pain (4-6) Last Admin: 03/16/19 20:09 Dose: 50 mg Vital Signs & Weight: Vital Signs Temp Pulse Resp BP Pulse Ox 03/17/19 11:29 99.0 F 75 20 100/59 L 100 03/17/19 07:45 97.8 F 88 20 115/56 L 94 L 03/17/19 07:24 82 16 97 03/17/19 04:00 98.5 F 82 20 117/55 L Admit Weight 118 lb Weight 113 lb 4.8 oz - Physical Exam General: alert & oriented x3 Neck: supple neck Cardiac: regular rate and rhythm, S1/S2 Lungs: clear to auscultation, decreased breath sounds Neuro: cranial nerve 2-12 intact Extremities: no cyanosis Skin: clear Musculoskeletal: decreased range of motion - Labs Result Diagrams: 03/18/19 03:50 03/18/19 03:50 Troponin/CKMB Troponin I 0.022 ng/mL (< 0.028) 03/15/19 20:07 - Telemetry Sinus rhythms and dysrhythmias: sinus rhythm - Assessment/Plan Assessment/Plan: 1. SOB and CP - possible 2/2 severe anemia. Due to severe 3V CAD, She will probably benefit from further transfusions to keep Hgb > 10 to prevent futher the ischemia and NV. 2. Anemia - Heme-positive; managed by GI 3. severe 3V CAD - stable with ASA, Plavix, and Coreg; will stop Lovenox for hx of severe anemia 4. HTN - stable 5. HLD - on Statin 6. Hypothyroidism 7. PAD 8. Current smoker 9. mod with valve area 1.15 sq cm and peak gradient 33mmHg MAR reviewed * Echo on 03/16/2019 with EF 60%, grade I dd, mod dilated LA, mild MAC, mild MR , mod AR, mod with valve area 1.15 sq cm and peak gradient 33mmHg, mild-mod TR Pt. seen and eval. by me. I agree with the A/P by the [employer].Chest clear. RRR. + murmur.No edema.
[2019-03-17] MEDS: Clopidogrel Bisulfate 75 MG TAB PO SCH (12:47)
[2019-03-17] MEDS: Isosorbide Dinitrate 20 MG TAB PO SCH ×2 (12:47→20:10)
[2019-03-17] MEDS: Carvedilol 3.125 MG TAB PO SCH ×2 (12:47→20:10)
[2019-03-17] MEDS: Aspirin Chewable 81 MG TAB PO SCH (12:47)
[2019-03-17] MEDS: Enoxaparin Sodium 40 MG/0.4 ML SYRINGE SC SCH (12:47)
[2019-03-17] MEDS: Pantoprazole 40 MG VIAL IVP SCH (12:48)
--- NOTE | 2019-03-17 19:02 | PDOC.HOSPP ---
- Subjective Encounter Date: 03/17/19 Encounter Time: 10:48 Subjective: 88 y/o female with CHF, tobacco abuse, CAD, PAD admitted with worsening SOB and dry cough. Found to have severe anemia and features of acute CHF. was treated with blood transfusion and diuretic with improvement. Found also to have iron deficiency. GI is contemplating EGD. No new problem. wants to restart oral intake. - Objective Vital Signs & Weight: Vital Signs (12 hours) Temp Pulse Pulse Pulse Resp BP BP 03/17/19 16:17 77 79 100/54 L 113/59 L 03/17/19 15:41 97.8 F 81 18 03/17/19 13:31 87 16 03/17/19 11:29 99.0 F 75 20 03/17/19 07:45 97.8 F 88 20 03/17/19 07:24 82 16 03/17/19 07:20 BP Pulse Ox 03/17/19 16:17 03/17/19 15:41 90/53 L 95 03/17/19 13:31 96 03/17/19 11:29 100/59 L 100 03/17/19 07:45 115/56 L 94 L 03/17/19 07:24 97 03/17/19 07:20 95 Weight Admit Weight 118 lb Weight 113 lb 4.8 oz I&O: 03/16/19 03/17/19 03/18/19 06:59 06:59 06:59 Intake Total 240 720 Output Total 450 1400 Balance -210 -680 Result Diagrams: 03/17/19 04:19 03/17/19 04:19 Hospitalist ROS - Medication Medications: Active Medications Generic Name Dose Route Start Last Admin Trade Name Freq PRN Reason Stop Dose Admin Albuterol/Ipratropium 3 ml 03/15/19 19:00 03/17/19 13:31 Duoneb NEB 3 ml [id number] LORIN Administration Aspirin 81 mg 03/16/19 09:00 03/17/19 12:47 Aspirin Chewable PO 81 mg DAILY LORIN Administration Carvedilol 3.125 mg 03/15/19 21:00 03/17/19 12:47 Coreg PO 3.125 mg BID LORIN Administration Clopidogrel Bisulfate 75 mg 03/16/19 09:00 03/17/19 12:47 Plavix PO 75 mg DAILY LORIN Administration Enoxaparin Sodium 40 mg 03/16/19 09:00 03/17/19 12:47 Lovenox SC 40 mg 0900 LORIN Administration Furosemide 40 mg 03/16/19 06:00 03/17/19 15:24 Lasix SLOW IVP 40 mg 0600,1400 LORIN Administration Ferric Sodium Gluconate 120 mls @ 60 mls/hr 03/17/19 09:00 03/17/19 11:25 Complex 250 mg/ Sodium IVPB 03/17/19 21:01 120 mls Chloride Q12HR LORIN Administration Isosorbide Dinitrate 10 mg 03/15/19 21:00 03/17/19 12:47 Isordil PO 10 mg BID LORIN Administration Levothyroxine Sodium 125 mcg 03/16/19 06:00 03/17/19 05:36 Synthroid PO 125 mcg 0600 LORIN Administration Pantoprazole Sodium 40 mg 03/17/19 09:00 03/17/19 12:48 Protonix IVP 40 mg DAILY LORIN Administration Rosuvastatin Calcium 10 mg 03/15/19 21:00 03/16/19 20:09 Crestor PO 10 mg HS LORIN Administration Tramadol HCl 50 mg 03/15/19 22:30 03/16/19 20:09 Ultram PO 50 mg Q12H PRN Administration Moderate Pain (4-6) - Exam General Appearance: awake alert General - other findings: thin elderly Eye: anicteric sclera ENT: normocephalic atraumatic Neck: supple, symmetric, no JVD Heart: RRR, murmur present Respiratory: no wheezes, no rales, no ronchi, normal chest expansion Gastrointestinal: soft, non-tender, non-distended, normal bowel sounds Extremities: no cyanosis, no edema Neurological: cranial nerve grossly intact, no focal deficits Musculoskeletal: generalized weakness, diffuse muscle atrophy Psychiatric: A&O x 3 Hosp A/P (1) Acute on chronic diastolic (congestive) heart failure Code(s): I50.33 - ACUTE ON CHRONIC DIASTOLIC (CONGESTIVE) HEART FAILURE Status : Acute (2) Mild mitral regurgitation Code(s): I34.0 - NONRHEUMATIC MITRAL (VALVE) INSUFFICIENCY Status: Acute (3) Moderate aortic stenosis Code(s): I35.0 - NONRHEUMATIC AORTIC (VALVE) STENOSIS Status: Acute (4) Moderate aortic regurgitation Code(s): I35.1 - NONRHEUMATIC AORTIC (VALVE) INSUFFICIENCY Status: Acute (5) CAD (coronary artery disease) Code(s): I25.10 - ATHSCL HEART DISEASE OF [place] CORONARY ARTERY W/O ANG PCTRS Status: Chronic Qualifiers: Coronary Disease-Associated Artery/Lesion type: [place] artery [place] vs. transplanted heart: [place] heart Associated angina: without angina Qualified Code(s): I25.10 - Atherosclerotic heart disease of [place] coronary artery without angina pectoris (6) Hypothyroidism Code(s): E03.9 - HYPOTHYROIDISM, UNSPECIFIED Status: Chronic Qualifiers: Hypothyroidism type: unspecified Qualified Code(s): E03.9 - Hypothyroidism , unspecified (7) PVD (peripheral vascular disease) Code(s): I73.9 - PERIPHERAL VASCULAR DISEASE, UNSPECIFIED Status: Chronic (8) COPD (chronic obstructive pulmonary disease) Status: Suspected Qualifiers: COPD type: chronic bronchitis (9) Acute on chronic blood loss anemia Code(s): D62 - ACUTE POSTHEMORRHAGIC ANEMIA Status: Acute (10) Iron deficiency anemia due to chronic blood loss Code(s): D50.0 - IRON DEFICIENCY ANEMIA SECONDARY TO BLOOD LOSS (CHRONIC) Status: Acute (11) Hypokalemia Code(s): E87.6 - HYPOKALEMIA Status: Acute - Plan Start IV iron therapy Diet as per GI Monitor H/H Replete electrolytes. Continue bronchodilators
[2019-03-17] MEDS: Rosuvastatin 10 MG TAB PO SCH (20:10)
[2019-03-18 04:03] LABS: #Eosinphils 0.1 thou/uL (0.0-0.7); #Lymphocytes 1.3 thou/uL (1.20-3.40); #Monocytes 1.2 thou/uL (0.11-0.59); #Neutrophils 9.7 thou/uL (1.40-6.50); %Basophils 0.3 % (0.0-1.0); %Eosinophils 0.8 % (0.0-10.0); %Lymphocytes 10.6 % (21.0-51.0); %Monocytes 9.3 % (0.0-10.0); Hemoglobin 10.1 g/dL (12.0-16.0); Mean Corpuscular Hemoglobin 23.1 pg (27.0-31.0); Mean Corpuscular Volume 74.4 fL (78.0-98.0); Mean Platelet Volume 7.8 fL (7.4-10.4); Platelet Count 450 thou/uL (130-400); RBC Distribution Width 20.2 % (11.5-14.5); Red Blood Cell (RBC) Count 4.36 mill/uL (4.20-5.40); White Blood Cell (WBC) Count 12.3 thou/uL (4.8-10.8)
[2019-03-18] MEDS: Furosemide 40 MG/4 ML VIAL SLOW IVP SCH ×2 (04:12→13:55)
[2019-03-18 04:18] LABS: Anion Gap 11 mmol/L (10-20); BUN (Urea Nitrogen) 24 mg/dL (9.8-20.1); Calc. Creatinine Clearance 39 mL/min (70-130); Calcium 9.4 mg/dL (7.8-10.44); Carbon Dioxide 30 mmol/L (23-31); Chloride 100 mmol/L (98-107); Estimated GFR-MDRD 65; Glucose 100 mg/dL (83-110); Magnesium 2.3 mg/dL (1.6-2.6); Potassium 3.6 mmol/L (3.5-5.1); Sodium 137 mmol/L (136-145)
[2019-03-18] MEDS: Levothyroxine Sodium 125 MCG TAB PO SCH (05:18)
--- NOTE | 2019-03-18 07:51 | PRG ---
DATE OF SERVICE: 03/17/2019 SUBJECTIVE: The patient feels better today. Her shortness of breath is less. Subjectively, she feels better after blood transfusion. There is no nausea, vomiting, or abdominal pain. No overt bleeding such as melena, hematochezia, or rectal bleeding. OBJECTIVE: VITAL SIGNS: Temperature is 97.8, blood pressure 90/53, and pulse of 81. GENERAL: She is alert, frail, elderly woman without any distress. HEENT: Shows anicteric sclerae. Oropharynx is moist. CV: Normal S1-S2. Regular rate and rhythm. CHEST: Exam shows a breath sounds. No rales or rhonchi. ABDOMEN: Soft. No distention. No tenderness. No palpable mass or organomegaly. EXTREMITIES: Without edema. LABORATORY DATA: Hemoglobin 8.3 after 1 unit transfusion, hematocrit 26.8, and platelet count of 457. WBC 7.6. Electrolytes within normal range. Creatinine 0.88. ASSESSMENT: 1. Iron deficiency anemia with heme-positive stool. She had a negative colonoscopy in 2016 with only benign hyperplastic polyps removed. 2. Congestive heart failure. 3. Severe coronary artery disease, inoperable. 4. Hypertension/hyperlipidemia/hypothyroidism. RECOMMENDATION: 1. We will schedule EGD tomorrow as clinically the patient is improving today after transfusion. 2. Agree with intravenous iron as ordered. 3. Further recommendation to follow pending above endoscopic finding. Job ID: [id number]
--- NOTE | 2019-03-18 08:34 | PDOC.HOSPP ---
- Subjective Encounter Date: 03/18/19 Encounter Time: 08:13 Subjective: 88 y/o female with CHF, tobacco abuse, CAD, PAD admitted with worsening SOB and dry cough. Found to have severe anemia and features of acute CHF. was treated with blood transfusion and diuretic with improvement. Found also to have iron deficiency. No new problem. For EGD today. - Objective Vital Signs & Weight: Vital Signs (12 hours) Temp Pulse Pulse Resp BP Pulse Ox 03/18/19 07:33 95 03/18/19 07:17 82 16 96 03/18/19 01:44 97.9 F 87 20 140/60 03/18/19 00:23 75 16 95 03/17/19 22:36 98.0 F 87 20 112/55 L 03/17/19 22:21 98.0 F 86 20 90/52 L Weight Admit Weight 118 lb Weight 113 lb 11.2 oz I&O: 03/17/19 03/18/19 03/19/19 06:59 06:59 06:59 Intake Total 720 450 Output Total 1400 2400 Balance -680 -1950 Result Diagrams: 03/18/19 03:50 03/18/19 03:50 Hospitalist ROS - Medication Medications: Active Medications Generic Name Dose Route Start Last Admin Trade Name Freq PRN Reason Stop Dose Admin Albuterol/Ipratropium 3 ml 03/15/19 19:00 03/18/19 07:17 Duoneb NEB 3 ml [id number] LORIN Administration Aspirin 81 mg 03/16/19 09:00 03/17/19 12:47 Aspirin Chewable PO 81 mg DAILY LORIN Administration Carvedilol 3.125 mg 03/15/19 21:00 03/17/19 20:10 Coreg PO 3.125 mg BID LORIN Administration Clopidogrel Bisulfate 75 mg 03/16/19 09:00 03/17/19 12:47 Plavix PO 75 mg DAILY LORIN Administration Furosemide 40 mg 03/16/19 06:00 03/18/19 04:12 Lasix SLOW IVP 40 mg 0600,1400 LORIN Administration Isosorbide Dinitrate 10 mg 03/15/19 21:00 03/17/19 20:10 Isordil PO 10 mg BID LORIN Administration Levothyroxine Sodium 125 mcg 03/16/19 06:00 03/18/19 05:18 Synthroid PO 125 mcg 0600 LORIN Administration Pantoprazole Sodium 40 mg 03/17/19 09:00 03/17/19 12:48 Protonix IVP 40 mg DAILY LORIN Administration Rosuvastatin Calcium 10 mg 03/15/19 21:00 03/17/19 20:10 Crestor PO 10 mg HS LORIN Administration Tramadol HCl 50 mg 03/15/19 22:30 03/16/19 20:09 Ultram PO 50 mg Q12H PRN Administration Moderate Pain (4-6) - Exam General Appearance: awake alert Eye: anicteric sclera ENT: normocephalic atraumatic Neck: supple, symmetric Heart: RRR, murmur present Respiratory: no wheezes, no ronchi, normal chest expansion Respiratory - other findings: fair air entry with some transmitted sound Gastrointestinal: soft, non-tender, non-distended, normal bowel sounds Extremities: no cyanosis, no edema Neurological: cranial nerve grossly intact, no focal deficits Musculoskeletal: generalized weakness, diffuse muscle atrophy Psychiatric: A&O x 3 Hosp A/P (1) Acute on chronic diastolic (congestive) heart failure Code(s): I50.33 - ACUTE ON CHRONIC DIASTOLIC (CONGESTIVE) HEART FAILURE Status : Acute (2) Mild mitral regurgitation Code(s): I34.0 - NONRHEUMATIC MITRAL (VALVE) INSUFFICIENCY Status: Acute (3) Moderate aortic stenosis Code(s): I35.0 - NONRHEUMATIC AORTIC (VALVE) STENOSIS Status: Acute (4) Moderate aortic regurgitation Code(s): I35.1 - NONRHEUMATIC AORTIC (VALVE) INSUFFICIENCY Status: Acute (5) CAD (coronary artery disease) Code(s): I25.10 - ATHSCL HEART DISEASE OF [place] CORONARY ARTERY W/O ANG PCTRS Status: Chronic Qualifiers: Coronary Disease-Associated Artery/Lesion type: [place] artery [place] vs. transplanted heart: [place] heart Associated angina: without angina Qualified Code(s): I25.10 - Atherosclerotic heart disease of [place] coronary artery without angina pectoris (6) Hypothyroidism Code(s): E03.9 - HYPOTHYROIDISM, UNSPECIFIED Status: Chronic Qualifiers: Hypothyroidism type: unspecified Qualified Code(s): E03.9 - Hypothyroidism , unspecified (7) PVD (peripheral vascular disease) Code(s): I73.9 - PERIPHERAL VASCULAR DISEASE, UNSPECIFIED Status: Chronic (8) COPD (chronic obstructive pulmonary disease) Status: Suspected Qualifiers: COPD type: chronic bronchitis (9) Acute on chronic blood loss anemia Code(s): D62 - ACUTE POSTHEMORRHAGIC ANEMIA Status: Acute (10) Iron deficiency anemia due to chronic blood loss Code(s): D50.0 - IRON DEFICIENCY ANEMIA SECONDARY TO BLOOD LOSS (CHRONIC) Status: Acute (11) Hypokalemia Code(s): E87.6 - HYPOKALEMIA Status: Acute (12) Severe protein-calorie malnutrition Code(s): E43 - UNSPECIFIED SEVERE PROTEIN-CALORIE MALNUTRITION Status: Acute (13) COPD exacerbation Code(s): J44.1 - CHRONIC OBSTRUCTIVE PULMONARY DISEASE W (ACUTE) EXACERBATION Status: Acute - Plan Start budesonide inhalation For EGD today Diet as per GI Monitor H/H Replete electrolytes. Continue nutritional rehabiliation Continue bronchodilators Consult case mgt to help with SNF/inpatient rehab arrangement
--- NOTE | 2019-03-18 08:35 | PDOC.CPN ---
- Subjective Date: 03/18/19 Time: 08:40 Interval history: The pt seen and examined. No overnight events. No cardiac complaints. - Objective Allergies/Adverse Reactions: Allergies Allergy/AdvReac Type Severity Reaction Status Date / Time cephalexin [From Keflex] Allergy Verified 03/15/19 15:28 erythromycin base Allergy Verified 03/15/19 15:28 lisinopril Allergy Verified 03/15/19 15:28 Penicillins Allergy Verified 03/15/19 15:28 tetracycline Allergy Verified 03/15/19 15:28 triazolam [From Halcion] Allergy Verified 03/15/19 15:28 Visit Medications: Current Medications Acetaminophen (Tylenol) 650 mg PO Q4H PRN PRN Reason: Headache/Fever/Mild Pain (1-3) Albuterol/Ipratropium (Duoneb) 3 ml NEB [id number] [facility] Last Admin: 03/18/19 07:17 Dose: 3 ml Aspirin (Aspirin Chewable) 81 mg PO DAILY [facility] Last Admin: 03/17/19 12:47 Dose: 81 mg Bisacodyl (Dulcolax) 10 mg IA DAILYPRN PRN PRN Reason: Constipation Budesonide (Pulmicort Neb Solution) 0.5 mg INH BID-RT [facility] Carvedilol (Coreg) 3.125 mg PO BID [facility] Last Admin: 03/17/19 20:10 Dose: 3.125 mg Clopidogrel Bisulfate (Plavix) 75 mg PO DAILY [facility] Last Admin: 03/17/19 12:47 Dose: 75 mg Furosemide (Lasix) 40 mg SLOW IVP 0600,1400 [facility] Last Admin: 03/18/19 04:12 Dose: 40 mg Guaifenesin/Dextromethorphan (Robitussin Dm) 15 ml PO Q4H PRN PRN Reason: Cough Isosorbide Dinitrate (Isordil) 10 mg PO BID [facility] Last Admin: 03/17/19 20:10 Dose: 10 mg Levothyroxine Sodium (Synthroid) 125 mcg PO 0600 [facility] Last Admin: 03/18/19 05:18 Dose: 125 mcg Ondansetron HCl (Zofran) 4 mg IVP Q6H PRN PRN Reason: Nausea/Vomiting Pantoprazole Sodium (Protonix) 40 mg IVP DAILY [facility] Last Admin: 03/17/19 12:48 Dose: 40 mg Rosuvastatin Calcium (Crestor) 10 mg PO HS [facility] Last Admin: 03/17/19 20:10 Dose: 10 mg Senna/Docusate Sodium (Senokot S) 2 tab PO BID PRN PRN Reason: Constipation Sodium Chloride (Flush - Normal Saline) 10 ml IVF PRN PRN PRN Reason: Saline Flush Tramadol HCl (Ultram) 50 mg PO Q12H PRN PRN Reason: Moderate Pain (4-6) Last Admin: 03/16/19 20:09 Dose: 50 mg Vital Signs & Weight: Vital Signs Temp Pulse Pulse Resp BP Pulse Ox 03/18/19 07:33 95 03/18/19 07:17 82 16 96 03/18/19 01:44 97.9 F 87 20 140/60 03/18/19 00:23 75 16 95 03/17/19 22:36 98.0 F 87 20 112/55 L 03/17/19 22:21 98.0 F 86 20 90/52 L Admit Weight 118 lb Weight 113 lb 11.2 oz - Physical Exam General: alert & oriented x3 HEENT: mucus membranes moist Neck: supple neck Cardiac: regular rate and rhythm, S1/S2 Lungs: clear to auscultation, decreased breath sounds Neuro: cranial nerve 2-12 intact Abdomen: unremarkable Extremities: no cyanosis - Labs Result Diagrams: 03/18/19 03:50 03/18/19 03:50 Troponin/CKMB Troponin I 0.022 ng/mL (< 0.028) 03/15/19 20:07 - Telemetry Sinus rhythms and dysrhythmias: sinus rhythm - Assessment/Plan Assessment/Plan: 1. SOB and CP - possible 2/2 severe anemia. Due to severe 3V CAD, She will probably benefit from further transfusions to keep Hgb > 10 to prevent futher the ischemia and AL. 2. Anemia - plan for EGD tomorrow for Heme-positive; managed by GI 3. severe 3V CAD - stable with ASA, Plavix, and Coreg; will stop Lovenox for hx of severe anemia 4. HTN - stable 5. HLD - on Statin 6. Hypothyroidism 7. PAD 8. Current smoker - strongly recommend start smoking cessation 9. mod with valve area 1.15 sq cm and peak gradient 33mmHg MAR reviewed * Echo on 03/16/2019 with EF 60%, grade I dd, mod dilated LA, mild MAC, mild MR , mod AR, mod with valve area 1.15 sq cm and peak gradient 33mmHg, mild-mod TR Pt. seen and eval. by me. I agree with the A/P by the PROVIDER RELATIONS CONSULTANT.She is feeling better with the incr. Hgb.Plan for EGD. chest clear. RRR, murmur. Continue present cardiac meds. gjmays
--- NOTE | 2019-03-18 12:13 | PRG ---
DATE OF SERVICE: 03/18/2019 SUBJECTIVE: Ms. Mims asked to cancel her EGD, which was planned for today. I had a long discussion with her this morning. She declines to pursue any endoscopic investigation into her iron deficiency anemia, primarily concerned about procedural risk. I discussed that my recommendation would still be to proceed, for diagnostic and also prognostic purposes in terms of knowing what to do with her anticoagulation and anti-platelet agents going forward, etc. Despite this, the patient is quite clear that she does not want to undergo any procedure. I would honor her wishes in this regard. I think it would be reasonable to just have her on a once daily proton pump inhibitor going forward as empiric treatment for possible peptic ulcer disease, though again, the etiology of her occult bleeding is unclear. The patient understands all the implications. GI will sign off. The patient can advance her diet. Please call back anytime if we can be of assistance. OBJECTIVE: VITAL SIGNS: Temperature 97.8, pulse 83, blood pressure 93/60, and 95% oxygen saturation on room air. GENERAL: In no acute distress. HEART: Regular rate and rhythm. LUNGS: Clear to auscultation bilaterally. ABDOMEN: Flat, soft, nontender to palpation. EXTREMITIES: No peripheral edema. LABORATORY STUDIES: WBC 12.3, hemoglobin 10.1, platelets 450. INR is 1.0. Sodium 137, potassium 3.6, BUN 24, creatinine 0.83. ASSESSMENT AND PLAN: 1. Iron deficiency anemia. 2. Heme-positive stool. The patient declines any endoscopic investigation and is fully aware of the implications of both proceeding and declining the procedure. GI will sign off at this time. Please call back anytime with questions or concerns. Job ID: [id number]
[2019-03-18] MEDS: Isosorbide Dinitrate 20 MG TAB PO SCH ×2 (13:55→19:57)
[2019-03-18] MEDS: Clopidogrel Bisulfate 75 MG TAB PO SCH (13:55)
[2019-03-18] MEDS: Carvedilol 3.125 MG TAB PO SCH ×2 (13:55→19:57)
[2019-03-18] MEDS: Aspirin Chewable 81 MG TAB PO SCH (13:55)
[2019-03-18] MEDS: Pantoprazole 40 MG VIAL IVP SCH (13:56)
[2019-03-18] MEDS: Budesonide 0.5 MG/2 ML NEB INH SCH (19:05)
[2019-03-18] MEDS: Rosuvastatin 10 MG TAB PO SCH (19:55)
[2019-03-18] MEDS: traMADol HCl 50 MG TAB PO PRN (19:56)
[2019-03-19 06:04] LABS: #Basophils 0.1 thou/uL (0.0-0.2); #Eosinphils 0.2 thou/uL (0.0-0.7); #Lymphocytes 1.9 thou/uL (1.20-3.40); #Monocytes 1.3 thou/uL (0.11-0.59); %Basophils 0.7 % (0.0-1.0); %Eosinophils 1.7 % (0.0-10.0); %Lymphocytes 19.9 % (21.0-51.0); %Monocytes 13.4 % (0.0-10.0); %Neutrophils 64.2 % (42.0-75.0); Anisocytosis SLIGHT = 6-15 cells (100X) (0-5/hpf); Hemoglobin 9.6 g/dL (12.0-16.0); MDiff Complete? YES; Mean Corpuscular HGB CONC 30.5 g/dL (32.0-36.0); Mean Corpuscular Hemoglobin 22.8 pg (27.0-31.0); Mean Corpuscular Volume 74.6 fL (78.0-98.0); Mean Platelet Volume 8.3 fL (7.4-10.4); Platelet Count 446 thou/uL (130-400); RBC Distribution Width 20.6 % (11.5-14.5); Red Blood Cell (RBC) Count 4.22 mill/uL (4.20-5.40); White Blood Cell (WBC) Count 9.3 thou/uL (4.8-10.8)
[2019-03-19] MEDS: Furosemide 40 MG/4 ML VIAL SLOW IVP SCH (06:42)
[2019-03-19] MEDS: Levothyroxine Sodium 125 MCG TAB PO SCH (06:43)
[2019-03-19 06:47] VITALS: BMI 18.6
[2019-03-19] MEDS: Budesonide 0.5 MG/2 ML NEB INH SCH (07:51)
[2019-03-19 09:16] LABS: #Basophils 0.1 thou/uL (0.0-0.2); #Eosinphils 0.1 thou/uL (0.0-0.7); #Lymphocytes 1.7 thou/uL (1.20-3.40); #Monocytes 1.1 thou/uL (0.11-0.59); #Neutrophils 5.9 thou/uL (1.40-6.50); %Basophils 0.6 % (0.0-1.0); %Eosinophils 1.2 % (0.0-10.0); %Lymphocytes 18.9 % (21.0-51.0); %Monocytes 12.7 % (0.0-10.0); %Neutrophils 66.7 % (42.0-75.0); Hemoglobin 10.1 g/dL (12.0-16.0); Mean Corpuscular HGB CONC 30.3 g/dL (32.0-36.0); Mean Corpuscular Volume 75.8 fL (78.0-98.0); Mean Platelet Volume 8.1 fL (7.4-10.4); Platelet Count 442 thou/uL (130-400); RBC Distribution Width 20.6 % (11.5-14.5); Red Blood Cell (RBC) Count 4.39 mill/uL (4.20-5.40); White Blood Cell (WBC) Count 8.8 thou/uL (4.8-10.8)
[2019-03-19 09:29] LABS: Anion Gap 11 mmol/L (10-20); BUN (Urea Nitrogen) 26 mg/dL (9.8-20.1); Calc. Creatinine Clearance 34 mL/min (70-130); Carbon Dioxide 33 mmol/L (23-31); Chloride 95 mmol/L (98-107); Estimated GFR-MDRD 51; Potassium 3.1 mmol/L (3.5-5.1); Sodium 136 mmol/L (136-145)
[2019-03-19 09:30] LABS: Calcium 9.4 mg/dL (7.8-10.44); Glucose 177 mg/dL (83-110)
[2019-03-19] MEDS: Clopidogrel Bisulfate 75 MG TAB PO SCH (10:10)
[2019-03-19] MEDS: Aspirin Chewable 81 MG TAB PO SCH (10:11)
[2019-03-19] MEDS: Isosorbide Dinitrate 20 MG TAB PO SCH (10:11)
[2019-03-19] MEDS: Carvedilol 3.125 MG TAB PO SCH (10:11)
[2019-03-19] MEDS: Pantoprazole 40 MG VIAL IVP SCH (10:11)
[2019-03-19] MEDS ORDERED: Iron, Sodium Ferric Gluconate 250 MG in Sodium Chloride 0.9% 100 ML IVPB SCH (10:45)
--- NOTE | 2019-03-19 11:49 | PDOC.CPN ---
- Subjective Date: 03/19/19 Time: 08:30 Interval history: The pt seen and examined. No overnight events. No cardiac complaints. - Objective Allergies/Adverse Reactions: Allergies Allergy/AdvReac Type Severity Reaction Status Date / Time cephalexin [From Keflex] Allergy Verified 03/15/19 15:28 erythromycin base Allergy Verified 03/15/19 15:28 lisinopril Allergy Verified 03/15/19 15:28 Penicillins Allergy Verified 03/15/19 15:28 tetracycline Allergy Verified 03/15/19 15:28 triazolam [From Halcion] Allergy Verified 03/15/19 15:28 Visit Medications: Current Medications Acetaminophen (Tylenol) 650 mg PO Q4H PRN PRN Reason: Headache/Fever/Mild Pain (1-3) Albuterol/Ipratropium (Duoneb) 3 ml NEB [id number] [facility] Last Admin: 03/19/19 07:42 Dose: 3 ml Aspirin (Aspirin Chewable) 81 mg PO DAILY [facility] Last Admin: 03/19/19 10:11 Dose: 81 mg Bisacodyl (Dulcolax) 10 mg MT DAILYPRN PRN PRN Reason: Constipation Budesonide (Pulmicort Neb Solution) 0.5 mg INH BID-RT [facility] Last Admin: 03/19/19 07:51 Dose: 0.5 mg Carvedilol (Coreg) 3.125 mg PO BID [facility] Last Admin: 03/19/19 10:11 Dose: 3.125 mg Clopidogrel Bisulfate (Plavix) 75 mg PO DAILY [facility] Last Admin: 03/19/19 10:10 Dose: 75 mg Guaifenesin/Dextromethorphan (Robitussin Dm) 15 ml PO Q4H PRN PRN Reason: Cough Ferric Sodium Gluconate Complex 250 mg/ Sodium Chloride 120 mls @ 60 mls/hr IVPB NOW [facility] Stop: 03/19/19 14:00 Isosorbide Dinitrate (Isordil) 10 mg PO BID [facility] Last Admin: 03/19/19 10:11 Dose: 10 mg Levothyroxine Sodium (Synthroid) 125 mcg PO 0600 [facility] Last Admin: 03/19/19 06:43 Dose: 125 mcg Ondansetron HCl (Zofran) 4 mg IVP Q6H PRN PRN Reason: Nausea/Vomiting Pantoprazole Sodium (Protonix) 40 mg IVP DAILY [facility] Last Admin: 03/19/19 10:11 Dose: 40 mg Potassium Chloride (K-Dur) 40 meq PO Q4H [facility] Stop: 03/19/19 16:01 Rosuvastatin Calcium (Crestor) 10 mg PO HS [facility] Last Admin: 03/18/19 19:55 Dose: 10 mg Senna/Docusate Sodium (Senokot S) 2 tab PO BID PRN PRN Reason: Constipation Sodium Chloride (Flush - Normal Saline) 10 ml IVF PRN PRN PRN Reason: Saline Flush Tramadol HCl (Ultram) 50 mg PO Q12H PRN PRN Reason: Moderate Pain (4-6) Last Admin: 03/18/19 19:56 Dose: 50 mg Vital Signs & Weight: Vital Signs Temp Pulse Resp BP Pulse Ox 03/19/19 07:56 97.8 F 63 18 119/53 L 96 03/19/19 07:42 99 14 97 03/19/19 07:32 95 03/19/19 03:10 98.5 F 74 18 118/57 L 96 Admit Weight 118 lb Weight 119 lb 6.4 oz - Physical Exam General: alert & oriented x3 HEENT: mucus membranes moist Neck: supple neck Cardiac: regular rate and rhythm, S1/S2 Lungs: clear to auscultation Neuro: cranial nerve 2-12 intact Musculoskeletal: decreased range of motion - Labs Result Diagrams: 03/19/19 08:44 03/19/19 08:44 Troponin/CKMB Troponin I 0.022 ng/mL (< 0.028) 03/15/19 20:07 - Telemetry Sinus rhythms and dysrhythmias: sinus rhythm - Assessment/Plan Assessment/Plan: 1. SOB and CP - possible 2/2 severe anemia. Due to severe 3V CAD, She will probably benefit from further transfusions to keep Hgb > 10 to prevent futher the ischemia and ME. 2. Anemia - The pt declined EGD and other further GI workup for Heme-positive; managed by GI 3. severe 3V CAD - stable with ASA, Plavix, and Coreg; will stop Lovenox for hx of severe anemia 4. HTN - stable 5. HLD - on Statin 6. Hypothyroidism 7. PAD 8. Current smoker - strongly recommend start smoking cessation 9. mod with valve area 1.15 sq cm and peak gradient 33mmHg MAR reviewed * Echo on 03/16/2019 with EF 60%, grade I dd, mod dilated LA, mild MAC, mild MR , mod AR, mod with valve area 1.15 sq cm and peak gradient 33mmHg, mild-mod TR * From Cardiac standpoint, the pt is table to tx to Rehab. * The pt will f/u with Dr Bangura' office within 2-4 wks after she is d/rio from Rehab Pt. seen and eval. by me. I agree with nthe A/P by the Informatics Nurse Specialist[. She is feeling better. No cardiac complaints. Chest clear but decr. BS. no edema.
[2019-03-19] MEDS: Potassium Chloride 20 MEQ TAB PO SCH ×2 (12:00→17:02)
[2019-03-19 16:24] VITALS: BP 123/59; TEMP 97.9
--- NOTE | 2019-03-22 16:42 | DIS ---
DATE OF ADMISSION: 03/15/2019 DATE OF DISCHARGE: 03/19/2019 PRIMARY CARE PHYSICIAN: Bonita Sanchez PA-C DISCHARGE DIAGNOSES: 1. Acute on chronic diastolic heart failure. 2. Acute on chronic blood loss anemia. 3. Iron deficiency anemia due to chronic blood loss. 4. Hypokalemia. 5. Chronic obstructive pulmonary disease exacerbation. 6. Severe protein-calorie malnutrition. 7. Hypothyroidism. 8. Coronary artery disease. 9. Moderate aortic regurgitation. 10. Moderate aortic stenosis. 11. Mild mitral regurgitation. 12. Peripheral vascular disease. 13. Tobacco abuse disorder. CONSULTS: 1. Cardiology. 2. Gastroenterology. HOSPITAL COURSE: An 88-year-old female with chronic diastolic heart failure, tobacco abuse, coronary artery disease, peripheral artery disease, admitted with worsening shortness of breath and dry cough. Impression of acute on chronic diastolic heart failure and COPD exacerbation leading to acute respiratory insufficiency was made. The patient also was found to have severe anemia with hemoglobin of 4.9 on presentation. The patient was transfused 1 unit of packed red blood cells and treated with diuretics as well as bronchodilators and antibiotics with improvement. Further evaluation showed features of iron deficiency, hence the patient was treated with IV iron with further increase in hemoglobin. GI consult was obtained and the patient had severe multiple vessel coronary artery disease and was being high risk for invasive procedure and doing endoscopic evaluation, the patient declined. The patient also was found to have physical deconditioning and received physical therapy with some improvement and was subsequently discharged to inpatient rehabilitation for further restorative therapy. Of note, the patient also was found to have severe protein-calorie malnutrition and nutritional rehabilitation was started with oral supplements. PHYSICAL EXAMINATION: VITAL SIGNS: Temperature 97.9, pulse 75, respiratory rate 22, SpO2 of 97% on room air, and blood pressure is 123/59. GENERAL: Slim, elderly female, in no obvious distress. Afebrile. Anicteric. Acyanotic. HEENT: Normocephalic, atraumatic. Oral mucosa is moist. CARDIOVASCULAR: Regular rhythm and rate with normal heart sounds 1 and 2. Systolic murmur noted. RESPIRATORY: Fair air entry bilaterally with no obvious crackle or rhonchi or use of accessory muscles. GI: Full, soft, nontender, nondistended with normal bowel sounds. EXTREMITIES: Grossly normal looking atraumatic with no edema. Atrophy of both lower extremities was noted. NEUROLOGIC: Conscious and alert and oriented x3 with appropriate mental status. Cranial nerves 2 through 12 are grossly intact. The patient ambulates with a walker. DISCHARGE CONDITION: Improved. DISCHARGE DISPOSITION: Inpatient rehabilitation. DISCHARGE MEDICATIONS: 1. Aspirin 81 mg p.o. daily. 2. Carvedilol 3.125 mg p.o. b.i.d. 3. Cholecalciferol 1000 units p.o. daily. 4. Plavix 75 mg p.o. daily. 5. Vitamin B12 1000 mcg p.o. daily. 6. Isosorbide dinitrate 10 mg p.o. b.i.d. 7. Levothyroxine 125 mcg p.o. daily. 8. Crestor 10 mg p.o. daily. 9. Tramadol 50 mg p.o. p.r.n. for pain. 10. Acetaminophen 250 mg p.o. q.4 p.r.n. for pain. 11. Budesonide 0.5 mg inhalation b.i.d. 12. Ferrous sulfate 325 mg p.o. b.i.d. 13. Lasix 40 mg p.o. daily. 14. DuoNeb 3 mL q.6 p.r.n. for shortness of breath and wheezing. 15. Protonix 40 mg p.o. daily. 16. Sennosides/docusate 8.6 mg/50 mg two tablets p.o. b.i.d. This discharge took more than 38 minutes. Job ID: [id number]
== END 2019-03-19 17:16 | DRG 291 ==
LOC: ERS 12:40 → ERHOLD 17:03 → OBSVTOIN 17:03 → 2NO 18:49
PROVIDERS: ADMIT Internal Medicine; ATTEND Internal Medicine
PROC: 30233N1 Transfusion of Nonautologous Red Blood Cells into Peripheral Vein, Percutaneous Approach (ICD-10-PCS; principal; 2019-03-16)
DX: I11.0 Hypertensive heart disease with heart failure (principal); E43 Unspecified severe protein-calorie malnutrition; D62 Acute posthemorrhagic anemia; Z68.1 Body mass index [BMI] 19.9 or less, adult; J44.1 Chronic obstructive pulmonary disease with (acute) exacerbation; I50.33 Acute on chronic diastolic (congestive) heart failure; Z66 Do not resuscitate; F17.210 Nicotine dependence, cigarettes, uncomplicated; I25.10 Atherosclerotic heart disease of native coronary artery without angina pectoris; M19.90 Unspecified osteoarthritis, unspecified site; I73.9 Peripheral vascular disease, unspecified; E87.6 Hypokalemia; E78.5 Hyperlipidemia, unspecified; E03.9 Hypothyroidism, unspecified; E78.00 Pure hypercholesterolemia, unspecified; Z85.3 Personal history of malignant neoplasm of breast; Z79.82 Long term (current) use of aspirin; Z79.899 Other long term (current) drug therapy; Z90.710 Acquired absence of both cervix and uterus; Z88.1 Allergy status to other antibiotic agents; Z88.8 Allergy status to other drugs, medicaments and biological substances; Z88.0 Allergy status to penicillin; Z85.118 Personal history of other malignant neoplasm of bronchus and lung; Z79.890 Hormone replacement therapy; I08.3 Combined rheumatic disorders of mitral, aortic and tricuspid valves; Z95.5 Presence of coronary angioplasty implant and graft; Z79.02 Long term (current) use of antithrombotics/antiplatelets; M81.0 Age-related osteoporosis without current pathological fracture
CPT/HCPCS: 36415; 36430; 71045; 71275; 80048; 80053; 82274; 82607; 82728; 82746; 83540; 83550; 83735; 83880; 84443; 84484; 85025; 85379; 85610; 85730; 86850; 86900; 86901; 93005; 93306; 93798; 94640; 96374; C9113; J1650; J1940; J2916; J3490; J7620; J7626; P9016; Q9967

== ENCOUNTER 2019-05-27 14:57 | Outpatient (CLI) | payer MEDICARE, OTHER ==
--- NOTE | 2019-05-27 15:20 | RAD ---
EXAM: Two views chest PROVIDED CLINICAL HISTORY: Cough for 3 weeks PICC COMPARISON: 03/15/2019 FINDINGS: Cardiac silhouette and pulmonary vasculature are within normal limits. Mild increase in interstitial densities are again noted bilaterally which may be related to mild chronic interstitial lung disease. There has been resolution of left pleural effusion with suggestion of residual very tiny rig ht pleural effusion versus pleural and parenchymal scarring. Mild linear and slight patchy density is seen at the right lung base probably related to atelectasis. Pneumonitis cannot be entirely exclud ed. Evidence of prior granulomatous disease is again seen. 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 Degenerative changes noted in the spine. Vascular calcifications are seen in the thora cic aorta IMPRESSION: 1. Findings likely due to mild chronic interstitial lung disease with mild linear and patchy densitie s right lung base which could be related to superimposed atelectasis or developing area of pneumonitis. Follow-up chest x-ray is recommended to ensure resolution. 2. Tiny right pleural effusion and right pleural effusion has significantly improved from prior study . The left pleural effusion has resolved.
== END 2019-05-27 14:58 | disposition home or self-care (01) ==
LOC: BICRAD 14:57
PROVIDERS: ATTEND Internal Medicine
DX: R05 Cough (principal); J90 Pleural effusion, not elsewhere classified
CPT/HCPCS: 71046

== ENCOUNTER 2020-08-09 10:21 | Outpatient (CLI) | payer MEDICARE, OTHER | END 2020-08-09 10:22 | disposition home or self-care (01) | LOC: BICRAD 10:21 | PROVIDERS: ATTEND Internal Medicine Critical Care Medicine | DX: R06.00 Dyspnea, unspecified (principal); R91.8 Other nonspecific abnormal finding of lung field | CPT/HCPCS: 71046 ==

== ENCOUNTER 2022-05-15 04:35 | Emergency (ER) | payer MEDICARE, OTHER ==
[2022-05-15] MEDS ORDERED: Lidocaine 1% w/Epinephrine 1:100K 20 ML VIAL ONE (05:49)
== END 2022-05-15 07:48 ==
LOC: ERS 04:35
DX: S01.01XA Laceration without foreign body of scalp, initial encounter (principal); I11.0 Hypertensive heart disease with heart failure; I50.9 Heart failure, unspecified; W19.XXXA Unspecified fall, initial encounter; Z23 Encounter for immunization
CPT/HCPCS: 12004; 70450

== ENCOUNTER 2022-05-24 11:00 | Inpatient (IN) | payer MEDICARE, OTHER ==
[2022-05-24 11:33] LABS: #Lymphocytes 1.5 thou/uL (1.20-3.40); #Monocytes 1.3 thou/uL (0.11-0.59); #Neutrophils 8.4 thou/uL (1.40-6.50); %Basophils 0.2 % (0.0-1.0); %Eosinophils 0.3 % (0.0-10.0); %Monocytes 11.5 % (0.0-10.0); Hemoglobin 10.4 g/dL (12.0-16.0); Mean Corpuscular HGB CONC 33.4 g/dL (32.0-36.0); Mean Corpuscular Hemoglobin 33.2 pg (27.0-31.0); Mean Corpuscular Volume 99.2 fl (78.0-98.0); Mean Platelet Volume 6.4 fL (7.4-10.4); Platelet Count 479 10x3/uL (130-400); RBC Distribution Width 14.1 % (11.5-14.5); Red Blood Cell (RBC) Count 3.12 mill/uL (4.20-5.40); White Blood Cell (WBC) Count 11.2 10x3/uL (4.8-10.8)
[2022-05-24 11:54] LABS: ALT (SGPT) 19 U/L (8-55); AST (SGOT) 30 U/L (5-34); Albumin 3.3 g/dL (3.4-4.8); Alkaline Phosphatase 87 U/L (40-110); Anion Gap 14 mmol/L (10-20); BUN (Urea Nitrogen) 16 mg/dL (9.8-20.1); Bilirubin, Total 0.5 mg/dL (0.2-1.2); Calc. Creatinine Clearance 0 mL/min (70-130); Calcium 8.9 mg/dL (7.8-10.44); Carbon Dioxide 22 mmol/L (23-31); Chloride 104 mmol/L (98-107); Estimated GFR 64; Globulin 3.4 g/dL (2.4-3.5); Glucose 100 mg/dL (83-110); Potassium 3.9 mmol/L (3.5-5.1); Protein, Total 6.7 g/dL (5.8-8.1); Sodium 136 mmol/L (136-145)
[2022-05-24] MEDS ORDERED: Aspirin Chewable 81 MG TAB ONE (12:07)
[2022-05-24] MEDS ORDERED: Furosemide 40 MG/4 ML VIAL ONE (12:08)
[2022-05-24] MEDS ORDERED: methylPREDNISolone Sod Succ/PF 125 MG/2 ML VIAL ONE (12:08)
[2022-05-24] MEDS ORDERED: traMADol HCl 50 MG TAB ONE (12:14)
[2022-05-24 12:15] LABS: CKMB 10.3 ng/mL (0-6.6)
[2022-05-24] MEDS ORDERED: Ipratropium/Albuterol 3 ML NEB ONE (12:30)
[2022-05-24 13:24] LABS: Phosphorus 3.3 mg/dL (2.3-4.7)
[2022-05-24 13:26] LABS: Magnesium 2.4 mg/dL (1.6-2.6)
[2022-05-24 13:31] LABS: SARS-CoV-2 NAA Rapid Test Not Detected (NotDetected)
[2022-05-24] MEDS ORDERED: Ondansetron PF 4 MG/2 ML Vial IVP PRN ×3 (14:45→15:09)
[2022-05-24] MEDS ORDERED: Acetaminophen 325 MG TAB PO PRN (14:45)
[2022-05-24] MEDS ORDERED: Ondansetron ODT 4 MG TAB SL PRN (14:45)
[2022-05-24] MEDS ORDERED: Nitroglycerin 0.4 MG TAB (25 Tab Bottle) SL PRN (14:48)
[2022-05-24] MEDS ORDERED: Calcium Carbonate 500 MG ChewTAB PO PRN (14:53)
[2022-05-24] MEDS ORDERED: Ondansetron ODT 4 MG TAB PO PRN ×2 (14:53→15:10)
[2022-05-24] MEDS ORDERED: Senokot S 8.6-50 MG TAB PO PRN (14:53)
[2022-05-24 15:22] VITALS: BMI 18.9
[2022-05-24 16:24] LABS: Bacteria/HPF None Seen HPF (None Seen); Bilirubin Negative (Negative); Blood, Urine Negative (Negative); Clarity Clear (Clear); Glucose, Urine (Dipstick) Normal (Negative); Ketone, Urine Negative (Negative); Leukocyte 75 Leu/uL (Negative); Nitrite Negative (Negative); Protein, Urine (Dipstick) Negative (Neg-Trace); RBC/HPF 0-3 HPF (0-3); Specific Gravity, Urine 1.007 (1.002-1.036); Squamous Epithelial 0-3 HPF (0-3); Urobilinogen Normal mg/dL (Less than 2)
[2022-05-24] MEDS ORDERED: Furosemide 40 MG/4 ML VIAL SLOW IVP SCH (17:00)
[2022-05-24] MEDS ORDERED: predniSONE 20 MG TAB PO SCH (17:00)
[2022-05-24] MEDS: Albumin 25% 25 GM/100 ML BOT IVPB SCH ×2 (17:27→23:36)
[2022-05-24] MEDS: Ipratropium/Albuterol 3 ML NEB NEB SCH ×2 (18:28→21:44)
[2022-05-24] MEDS: Mometasone 200 MCG/Formoterol 5 MCG 120 PUFF INHALER INH SCH (18:33)
[2022-05-24] MEDS ORDERED: hydrOXYzine Pamoate 25 mg Capsule PO SCH (20:00)
[2022-05-24] MEDS: guaiFENesin ER 600 MG TAB PO SCH (20:16)
[2022-05-24] MEDS: Heparin 5,000 UNITS/ML VIAL SC SCH (20:16)
[2022-05-24] MEDS: traMADol HCl 50 MG TAB PO PRN (20:28)
[2022-05-24] MEDS ORDERED: Famotidine 20 MG TAB PO SCH (21:00)
[2022-05-25 01:19] LABS: Actual Bicarbonate (HCO3a) 21.3 mEq/L (22-28); Base Excess (BEa) -7.2 mEq/L (-2.0 to +3.0); CO2 Tension 57.5 mmHg (35.0-45.0); Calcium, Ionized (arterial) 1.18 mmol/L (1.12-1.30); Carboxyhemoglobin (COHb) 0.4 gm% (0.0-3.0); Hemoglobin (Hb) 10.9 g/dL (12.0-16.0); O2 Tension (PaO2), arterial 152.3 mmHg (> 60.0); Potassium - ABG Lab 3.75 mmol/L (3.70-5.30); Puncture Site LBA; pH, Arterial 7.19 (7.35-7.45)
[2022-05-25 01:23] LABS: ALV-art Gradient 488.825 mmHg (0-20)
[2022-05-25] MEDS ORDERED: methylPREDNISolone Sod Succ/PF 125 MG/2 ML VIAL IVP SCH (01:30)
[2022-05-25] MEDS ORDERED: Ipratropium/Albuterol 3 ML NEB EZPAP PRN (01:32)
[2022-05-25] MEDS: Ipratropium/Albuterol 3 ML NEB NEB SCH ×6 (01:40→22:43)
[2022-05-25 01:58] LABS: #Lymphocytes 0.9 thou/uL (1.20-3.40); #Monocytes 0.2 thou/uL (0.11-0.59); #Neutrophils 4.3 thou/uL (1.40-6.50); %Basophils 0.8 % (0.0-1.0); %Eosinophils 0.1 % (0.0-10.0); %Lymphocytes 17.2 % (21.0-51.0); %Monocytes 3.8 % (0.0-10.0); %Neutrophils 78.2 % (42.0-75.0); Mean Corpuscular Hemoglobin 32.2 pg (27.0-31.0); Mean Platelet Volume 7.1 fL (7.4-10.4); Platelet Count 495 10x3/uL (130-400); RBC Distribution Width 14.2 % (11.5-14.5); White Blood Cell (WBC) Count 5.4 10x3/uL (4.8-10.8)
[2022-05-25] MEDS ORDERED: Furosemide 40 MG/4 ML VIAL ONE (02:00)
[2022-05-25 02:15] LABS: Lactic Acid 3.9 mmol/L (0.5-2.2)
[2022-05-25 02:23] LABS: ALT (SGPT) 29 U/L (8-55); AST (SGOT) 37 U/L (5-34); Albumin 4.4 g/dL (3.4-4.8); Alkaline Phosphatase 80 U/L (40-110); Anion Gap 19 mmol/L (10-20); BUN (Urea Nitrogen) 23 mg/dL (9.8-20.1); Bilirubin, Total 0.5 mg/dL (0.2-1.2); Calc. Creatinine Clearance 25 mL/min (70-130); Calcium 8.9 mg/dL (7.8-10.44); Carbon Dioxide 19 mmol/L (23-31); Chloride 102 mmol/L (98-107); Estimated GFR 38; Globulin 3.2 g/dL (2.4-3.5); Glucose 358 mg/dL (83-110); Potassium 3.5 mmol/L (3.5-5.1); Protein, Total 7.6 g/dL (5.8-8.1); Sodium 136 mmol/L (136-145)
[2022-05-25 03:48] LABS: #Lymphocytes 0.3 thou/uL (1.20-3.40); #Monocytes 0.7 thou/uL (0.11-0.59); #Neutrophils 7.9 thou/uL (1.40-6.50); %Basophils 0.1 % (0.0-1.0); %Eosinophils 0.1 % (0.0-10.0); %Lymphocytes 3.6 % (21.0-51.0); %Neutrophils 88.1 % (42.0-75.0); Hemoglobin 9.4 g/dL (12.0-16.0); Mean Corpuscular HGB CONC 32.6 g/dL (32.0-36.0); Mean Corpuscular Hemoglobin 32.4 pg (27.0-31.0); Mean Corpuscular Volume 99.3 fl (78.0-98.0); Mean Platelet Volume 7.9 fL (7.4-10.4); Platelet Count 396 10x3/uL (130-400); RBC Distribution Width 14.4 % (11.5-14.5)
[2022-05-25 04:23] LABS: CKMB 7.9 ng/mL (0-6.6)
[2022-05-25 04:54] LABS: Anion Gap 15 mmol/L (10-20); BUN (Urea Nitrogen) 25 mg/dL (9.8-20.1); Calc. Creatinine Clearance 24 mL/min (70-130); Calcium 8.8 mg/dL (7.8-10.44); Carbon Dioxide 24 mmol/L (23-31); Chloride 103 mmol/L (98-107); Estimated GFR 39; Glucose 213 mg/dL (83-110); Magnesium 2.4 mg/dL (1.6-2.6); Potassium 3.5 mmol/L (3.5-5.1); Sodium 138 mmol/L (136-145)
[2022-05-25] MEDS ORDERED: Ketorolac Tromethamine 30 MG/ML VIAL IVP SCH (05:15)
[2022-05-25] MEDS: methylPREDNISolone Sod Succ 40 MG VIAL IVP SCH ×3 (05:34→16:31)
[2022-05-25] MEDS: Furosemide 20 MG/2 ML VIAL SLOW IVP SCH ×2 (05:36→13:21)
[2022-05-25] MEDS ORDERED: Furosemide 20 MG/2 ML VIAL SLOW IVP SCH (06:00)
[2022-05-25] MEDS: Levothyroxine Sodium 125 MCG TAB PO SCH (06:48)
[2022-05-25] MEDS: Mometasone 200 MCG/Formoterol 5 MCG 120 PUFF INHALER INH SCH ×2 (07:14→18:18)
[2022-05-25 07:24] LABS: Actual Bicarbonate (HCO3a) 25.9 mEq/L (22-28); Base Excess (BEa) 1.5 mEq/L (-2.0 to +3.0); CO2 Tension 40.2 mmHg (35.0-45.0); Calcium, Ionized (arterial) 1.08 mmol/L (1.12-1.30); Carboxyhemoglobin (COHb) 0.3 gm% (0.0-3.0); Hemoglobin (Hb) 9.5 g/dL (12.0-16.0); O2 Tension (PaO2), arterial 141.9 mmHg (> 60.0); Potassium - ABG Lab 3.33 mmol/L (3.70-5.30); pH, Arterial 7.43 (7.35-7.45)
[2022-05-25 07:25] LABS: Puncture Site RRA
[2022-05-25] MEDS ORDERED: Aspirin Chewable 81 MG TAB PO SCH (09:00)
[2022-05-25] MEDS: Clopidogrel Bisulfate 75 MG TAB PO SCH (09:08)
[2022-05-25] MEDS: Aspirin 81 mg Enteric Coated Tablet PO SCH (09:08)
[2022-05-25] MEDS: guaiFENesin ER 600 MG TAB PO SCH ×2 (09:08→20:15)
[2022-05-25] MEDS: Heparin 5,000 UNITS/ML VIAL SC SCH ×2 (09:25→20:07)
[2022-05-25] MEDS ORDERED: Nicotine 14 MG PATCH TD PRN (10:00)
[2022-05-25] MEDS: Fentanyl 100 MCG/2 ML VIAL SLOW IVP PRN ×3 (13:20→20:02)
[2022-05-25] MEDS ORDERED: Fentanyl 100 MCG/2 ML VIAL SLOW IVP SCH (22:30)
[2022-05-26] MEDS: methylPREDNISolone Sod Succ 40 MG VIAL IVP SCH ×5 (00:39→23:11)
[2022-05-26] MEDS: Fentanyl 100 MCG/2 ML VIAL SLOW IVP PRN ×3 (02:09→21:36)
[2022-05-26] MEDS: Ipratropium/Albuterol 3 ML NEB NEB SCH ×6 (02:52→23:19)
[2022-05-26] MEDS: Furosemide 20 MG/2 ML VIAL SLOW IVP SCH ×2 (05:23→14:01)
[2022-05-26] MEDS: Levothyroxine Sodium 125 MCG TAB PO SCH (05:24)
[2022-05-26] MEDS: Mometasone 200 MCG/Formoterol 5 MCG 120 PUFF INHALER INH SCH ×2 (07:12→19:17)
[2022-05-26 07:17] LABS: #Lymphocytes 0.4 thou/uL (1.20-3.40); #Monocytes 0.8 thou/uL (0.11-0.59); #Neutrophils 9.3 thou/uL (1.40-6.50); %Basophils 0.2 % (0.0-1.0); %Eosinophils 0.1 % (0.0-10.0); %Lymphocytes 3.9 % (21.0-51.0); %Monocytes 7.3 % (0.0-10.0); %Neutrophils 88.5 % (42.0-75.0); Mean Platelet Volume 6.8 fL (7.4-10.4); Platelet Count 486 10x3/uL (130-400); RBC Distribution Width 14.2 % (11.5-14.5); Red Blood Cell (RBC) Count 3.11 mill/uL (4.20-5.40); White Blood Cell (WBC) Count 10.5 10x3/uL (4.8-10.8)
[2022-05-26 07:25] LABS: Lactic Acid 1.9 mmol/L (0.5-2.2)
[2022-05-26 07:29] LABS: ALT (SGPT) 49 U/L (8-55); AST (SGOT) 59 U/L (5-34); Albumin 3.9 g/dL (3.4-4.8); Alkaline Phosphatase 73 U/L (40-110); Anion Gap 17 mmol/L (10-20); BUN (Urea Nitrogen) 38 mg/dL (9.8-20.1); Bilirubin, Total 0.4 mg/dL (0.2-1.2); Calc. Creatinine Clearance 22 mL/min (70-130); Calcium 8.8 mg/dL (7.8-10.44); Carbon Dioxide 23 mmol/L (23-31); Chloride 104 mmol/L (98-107); Estimated GFR 37; Glucose 122 mg/dL (83-110); Potassium 3.4 mmol/L (3.5-5.1); Protein, Total 6.9 g/dL (5.8-8.1); Sodium 141 mmol/L (136-145)
[2022-05-26] MEDS ORDERED: Electrolyte Replacement Protocol 1 EACH FS SCH (07:30)
[2022-05-26] MEDS: Aspirin 81 mg Enteric Coated Tablet PO SCH (07:35)
[2022-05-26] MEDS: Clopidogrel Bisulfate 75 MG TAB PO SCH (07:35)
[2022-05-26] MEDS: Heparin 5,000 UNITS/ML VIAL SC SCH ×2 (07:35→20:03)
[2022-05-26] MEDS: guaiFENesin ER 600 MG TAB PO SCH ×2 (07:35→20:03)
[2022-05-26] MEDS ORDERED: Potassium Chloride 20 MEQ TAB PO SCH (08:00)
[2022-05-26] MEDS: traMADol HCl 50 MG TAB PO PRN ×2 (10:56→18:24)
[2022-05-27] MEDS: Ipratropium/Albuterol 3 ML NEB NEB SCH ×5 (02:50→19:13)
[2022-05-27] MEDS: Furosemide 20 MG/2 ML VIAL SLOW IVP SCH ×2 (05:32→12:52)
[2022-05-27] MEDS: methylPREDNISolone Sod Succ 40 MG VIAL IVP SCH ×4 (05:33→23:01)
[2022-05-27] MEDS: Levothyroxine Sodium 125 MCG TAB PO SCH (05:33)
[2022-05-27] MEDS: Mometasone 200 MCG/Formoterol 5 MCG 120 PUFF INHALER INH SCH ×2 (06:46→19:16)
[2022-05-27 07:03] LABS: Anion Gap 15 mmol/L (10-20); BUN (Urea Nitrogen) 54 mg/dL (9.8-20.1); Calc. Creatinine Clearance 22 mL/min (70-130); Calcium 8.9 mg/dL (7.8-10.44); Carbon Dioxide 27 mmol/L (23-31); Chloride 103 mmol/L (98-107); Estimated GFR 36; Glucose 132 mg/dL (83-110); Magnesium 2.7 mg/dL (1.6-2.6); Sodium 141 mmol/L (136-145)
[2022-05-27 07:06] LABS: #Lymphocytes 0.6 thou/uL (1.20-3.40); #Monocytes 1.2 thou/uL (0.11-0.59); #Neutrophils 7.7 thou/uL (1.40-6.50); %Basophils 0.3 % (0.0-1.0); %Eosinophils 0.1 % (0.0-10.0); %Lymphocytes 6.5 % (21.0-51.0); %Neutrophils 80.1 % (42.0-75.0); Hemoglobin 9.3 g/dL (12.0-16.0); Mean Corpuscular HGB CONC 32.3 g/dL (32.0-36.0); Mean Corpuscular Hemoglobin 32.3 pg (27.0-31.0); Mean Corpuscular Volume 99.8 fl (78.0-98.0); Mean Platelet Volume 6.9 fL (7.4-10.4); Platelet Count 477 10x3/uL (130-400); RBC Distribution Width 14.2 % (11.5-14.5); Red Blood Cell (RBC) Count 2.88 mill/uL (4.20-5.40); White Blood Cell (WBC) Count 9.6 10x3/uL (4.8-10.8)
[2022-05-27] MEDS ORDERED: Ipratropium/Albuterol 3 ML NEB EZPAP PRN (08:43)
[2022-05-27] MEDS ORDERED: traMADol HCl 50 MG TAB PO PRN (08:56)
[2022-05-27] MEDS: Aspirin 81 mg Enteric Coated Tablet PO SCH (09:42)
[2022-05-27] MEDS: guaiFENesin ER 600 MG TAB PO SCH ×2 (09:42→20:32)
[2022-05-27] MEDS: Heparin 5,000 UNITS/ML VIAL SC SCH ×2 (09:42→20:33)
[2022-05-27] MEDS: Clopidogrel Bisulfate 75 MG TAB PO SCH (09:42)
[2022-05-27] MEDS ORDERED: Ipratropium/Albuterol 3 ML NEB NEB PRN (12:12)
[2022-05-27] MEDS ORDERED: Polyethylene Glycol 3350 17 GM Packet PO PRN (12:22)
[2022-05-27] MEDS ORDERED: Morphine 2 MG/ML VIAL SLOW IVP PRN (16:31)
[2022-05-27] MEDS: Senokot S 8.6-50 MG TAB PO SCH (20:32)
[2022-05-27] MEDS: Acetaminophen 325 MG TAB PO PRN (22:59)
[2022-05-28] MEDS: Ipratropium/Albuterol 3 ML NEB NEB SCH ×4 (01:19→18:35)
[2022-05-28] MEDS: methylPREDNISolone Sod Succ 40 MG VIAL IVP SCH ×3 (05:38→17:07)
[2022-05-28] MEDS: Levothyroxine Sodium 125 MCG TAB PO SCH (05:39)
[2022-05-28] MEDS: Furosemide 20 MG/2 ML VIAL SLOW IVP SCH (05:39)
[2022-05-28 06:25] LABS: #Lymphocytes 0.5 thou/uL (1.20-3.40); #Monocytes 0.4 thou/uL (0.11-0.59); #Neutrophils 6.4 thou/uL (1.40-6.50); %Eosinophils 0.2 % (0.0-10.0); %Lymphocytes 6.3 % (21.0-51.0); %Neutrophils 87.5 % (42.0-75.0); Hemoglobin 10.7 g/dL (12.0-16.0); Mean Corpuscular HGB CONC 34.3 g/dL (32.0-36.0); Mean Corpuscular Hemoglobin 34.3 pg (27.0-31.0); Mean Corpuscular Volume 99.9 fl (78.0-98.0); Mean Platelet Volume 7.1 fL (7.4-10.4); Platelet Count 496 10x3/uL (130-400); RBC Distribution Width 14.3 % (11.5-14.5); Red Blood Cell (RBC) Count 3.13 mill/uL (4.20-5.40); White Blood Cell (WBC) Count 7.3 10x3/uL (4.8-10.8)
[2022-05-28 06:46] LABS: Anion Gap 16 mmol/L (10-20); BUN (Urea Nitrogen) 63 mg/dL (9.8-20.1); Calc. Creatinine Clearance 25 mL/min (70-130); Calcium 9.4 mg/dL (7.8-10.44); Carbon Dioxide 28 mmol/L (23-31); Chloride 101 mmol/L (98-107); Estimated GFR 40; Glucose 138 mg/dL (83-110); Potassium 3.6 mmol/L (3.5-5.1); Sodium 141 mmol/L (136-145)
[2022-05-28] MEDS: Mometasone 200 MCG/Formoterol 5 MCG 120 PUFF INHALER INH SCH ×2 (07:17→18:36)
[2022-05-28] MEDS: Clopidogrel Bisulfate 75 MG TAB PO SCH (08:22)
[2022-05-28] MEDS: Senokot S 8.6-50 MG TAB PO SCH ×2 (08:22→20:54)
[2022-05-28] MEDS: guaiFENesin ER 600 MG TAB PO SCH ×2 (08:22→20:54)
[2022-05-28] MEDS: Heparin 5,000 UNITS/ML VIAL SC SCH ×2 (08:22→20:55)
[2022-05-28] MEDS: Aspirin 81 mg Enteric Coated Tablet PO SCH (08:22)
[2022-05-28] MEDS: traMADol HCl 50 MG TAB PO PRN (10:45)
[2022-05-28] MEDS: Lidocaine 5% Patch TD SCH (11:46)
[2022-05-28] MEDS: traMADol HCl 50 MG TAB PO SCH ×2 (15:14→20:55)
[2022-05-29] MEDS: Transdermal Patch Removal TOP SCH (00:10)
[2022-05-29] MEDS: methylPREDNISolone Sod Succ 40 MG VIAL IVP SCH ×4 (00:10→17:52)
[2022-05-29] MEDS: Ipratropium/Albuterol 3 ML NEB NEB SCH ×4 (01:03→18:33)
[2022-05-29] MEDS: Levothyroxine Sodium 125 MCG TAB PO SCH (05:33)
[2022-05-29] MEDS: Mometasone 200 MCG/Formoterol 5 MCG 120 PUFF INHALER INH SCH ×2 (07:28→18:40)
[2022-05-29] MEDS: Clopidogrel Bisulfate 75 MG TAB PO SCH (08:53)
[2022-05-29] MEDS: traMADol HCl 50 MG TAB PO SCH ×3 (08:53→21:20)
[2022-05-29] MEDS: Furosemide 40 MG/4 ML VIAL SLOW IVP SCH (08:54)
[2022-05-29] MEDS: guaiFENesin ER 600 MG TAB PO SCH ×2 (08:54→21:21)
[2022-05-29] MEDS: Aspirin 81 mg Enteric Coated Tablet PO SCH (08:54)
[2022-05-29] MEDS: Senokot S 8.6-50 MG TAB PO SCH ×2 (08:54→21:21)
[2022-05-29] MEDS: Heparin 5,000 UNITS/ML VIAL SC SCH ×2 (08:54→21:20)
[2022-05-29] MEDS: Lidocaine 5% Patch TD SCH (11:39)
[2022-05-29] MEDS ORDERED: Lidocaine 5% Patch TD SCH (12:00)
[2022-05-30] MEDS: Ipratropium/Albuterol 3 ML NEB NEB SCH ×2 (00:16→06:55)
[2022-05-30] MEDS: methylPREDNISolone Sod Succ 40 MG VIAL IVP SCH ×3 (00:17→11:21)
[2022-05-30] MEDS: Transdermal Patch Removal TOP SCH (00:17)
[2022-05-30] MEDS: Acetaminophen 325 MG TAB PO PRN (03:04)
[2022-05-30] MEDS: Levothyroxine Sodium 125 MCG TAB PO SCH (06:17)
[2022-05-30] MEDS: Mometasone 200 MCG/Formoterol 5 MCG 120 PUFF INHALER INH SCH (06:49)
[2022-05-30 08:00] VITALS: BP 109/69; TEMP 97.4
[2022-05-30] MEDS: Senokot S 8.6-50 MG TAB PO SCH (08:38)
[2022-05-30] MEDS: Furosemide 40 MG/4 ML VIAL SLOW IVP SCH (08:38)
[2022-05-30] MEDS: Heparin 5,000 UNITS/ML VIAL SC SCH (08:38)
[2022-05-30] MEDS: Aspirin 81 mg Enteric Coated Tablet PO SCH (08:39)
[2022-05-30] MEDS: Clopidogrel Bisulfate 75 MG TAB PO SCH (08:39)
[2022-05-30] MEDS: traMADol HCl 50 MG TAB PO SCH (08:39)
[2022-05-30] MEDS: guaiFENesin ER 600 MG TAB PO SCH (08:39)
[2022-05-30] MEDS ORDERED: Lidocaine 5% Patch TD SCH (12:00)
== END 2022-05-30 11:40 | DRG 291 ==
LOC: ERS 11:00 → 2SW 13:03 → CCU 05-25 01:32 → OBSVTOIN 05-25 04:59 → T4-B 05-27 18:45
PROVIDERS: ADMIT Internal Medicine; ATTEND Hospitalist
PROC: 5A09357 Assistance with Respiratory Ventilation, Less than 24 Consecutive Hours, Continuous Positive Airway Pressure (ICD-10-PCS; principal; 2022-05-25)
DX: I13.0 Hypertensive heart and chronic kidney disease with heart failure and stage 1 through stage 4 chronic kidney disease, or unspecified chronic kidney disease (principal); E43 Unspecified severe protein-calorie malnutrition; J96.01 Acute respiratory failure with hypoxia; J96.02 Acute respiratory failure with hypercapnia; I50.33 Acute on chronic diastolic (congestive) heart failure; J44.1 Chronic obstructive pulmonary disease with (acute) exacerbation; N17.9 Acute kidney failure, unspecified; N39.0 Urinary tract infection, site not specified; Z68.1 Body mass index [BMI] 19.9 or less, adult; Z51.5 Encounter for palliative care; Z66 Do not resuscitate; Z20.822 Contact with and (suspected) exposure to COVID-19; I35.0 Nonrheumatic aortic (valve) stenosis; I73.9 Peripheral vascular disease, unspecified; I25.10 Atherosclerotic heart disease of native coronary artery without angina pectoris; E03.9 Hypothyroidism, unspecified; F17.210 Nicotine dependence, cigarettes, uncomplicated; I49.3 Ventricular premature depolarization; G89.4 Chronic pain syndrome; N18.30 Chronic kidney disease, stage 3 unspecified; G47.00 Insomnia, unspecified; B96.20 Unspecified Escherichia coli [E. coli] as the cause of diseases classified elsewhere; B96.89 Other specified bacterial agents as the cause of diseases classified elsewhere; M19.90 Unspecified osteoarthritis, unspecified site; D75.839 Thrombocytosis, unspecified; E87.6 Hypokalemia; Z88.0 Allergy status to penicillin; Z88.1 Allergy status to other antibiotic agents; Z88.8 Allergy status to other drugs, medicaments and biological substances; Z79.82 Long term (current) use of aspirin; Z79.890 Hormone replacement therapy; Z79.51 Long term (current) use of inhaled steroids; Z79.899 Other long term (current) drug therapy; Z95.5 Presence of coronary angioplasty implant and graft; Z90.09 Acquired absence of other part of head and neck; Z90.710 Acquired absence of both cervix and uterus; Z98.890 Other specified postprocedural states
CPT/HCPCS: 36415; 36600; 71045; 72170; 80048; 80053; 81001; 82533; 82550; 82553; 82565; 82805; 83605; 83735; 83880; 84100; 84484; 85025; 87077; 87086; 87186; 93005; 93306; 94640; 94660; 94760; 96365; 96372; 96374; 96375; 96376; G0378; J1644; J1885; J1940; J1956; J2272; J2405; J2920; J2930; J3010; J3490; J7512; J7620; P9047; Q0177; U0002